=== PATIENT | female | born 1955 | race Caucasian/White ===

== ENCOUNTER 2018-05-10 10:40 | Day surgery (SDC) | payer MEDICARE ==
[2018-05-10] MEDS ORDERED: DIPRIVAN 200 MG/20 ML IV ONE (10:41)
[2018-05-10] MEDS ORDERED: Marcaine 0.5% SDV 10 ML IJ ONE (10:41)
[2018-05-10] MEDS ORDERED: Depo-Medrol 40 MG/ML IM ONE (10:41)
--- NOTE | 2018-05-10 13:53 | XRAY ---
14 seconds fluoroscopy time in surgery for right shoulder joint and biceps tendon injections.
[2018-05-10] MEDS ORDERED: Lactated Ringers 1,000 ML IV ONE (14:31)
--- NOTE | 2018-05-15 09:49 | XRAY ---
Indication: Right shoulder injection. Intraoperative fluoroscopy was provided for 14 seconds. 2 digital spot images submitted for interpretation demonstrates spinal needle tip projecting over the superior right humeral head. Small amount of contrast injected for needle tip placement. Correlate with intraoperative findings/report.
== END 2018-05-10 12:55 | disposition home or self-care (01) ==
LOC: SDC-PAIN 10:40
PROVIDERS: ATTEND Psychiatry & Neurology Pain Medicine
DX: M25.511 Pain in right shoulder (principal)
CPT/HCPCS: 20610; 73030; 76000; 77002; J1030; J2704; Q9967

== ENCOUNTER 2019-08-22 11:28 | Day surgery (SDC) | payer MEDICARE ==
[2019-08-22] MEDS ORDERED: Marcaine 0.5% SDV 10 ML IJ ONE (11:29)
[2019-08-22] MEDS ORDERED: Depo-Medrol 40 MG/ML IM ONE (11:29)
[2019-08-22] MEDS ORDERED: DIPRIVAN 200 MG/20 ML IV ONE (13:00)
[2019-08-22] MEDS ORDERED: Ketamine HCl 50 MG/ML ONE (13:00)
--- NOTE | 2019-08-22 13:39 | XRAY ---
Indication: Right knee injection. Intraoperative fluoroscopy was provided for 9 seconds. Single digital spot image submitted for interpretation demonstrates needle tip projecting over the right femur intercondylar notch. Small amount of contrast injected for needle tip placement. Correlate with intraoperative findings/report.
[2019-08-22] MEDS ORDERED: Lactated Ringers 1,000 ML IV ONE (13:50)
--- NOTE | 2019-08-22 14:07 | XRAY ---
9 seconds fluoroscopy time in surgery for right knee intra-articular injection.
== END 2019-08-22 13:25 | disposition home or self-care (01) ==
LOC: SDC-PAIN 11:28
PROVIDERS: ATTEND Psychiatry & Neurology Pain Medicine
DX: M17.11 Unilateral primary osteoarthritis, right knee (principal); I10 Essential (primary) hypertension; K21.9 Gastro-esophageal reflux disease without esophagitis; Z79.899 Other long term (current) drug therapy
CPT/HCPCS: 20610; 73560; 77002; J1030; J2704; Q9966

== ENCOUNTER 2020-05-02 16:32 | Emergency (ER) | payer MEDICARE ==
--- NOTE | 2020-05-02 16:50 | ERPHSYRPT ---
- History of Present Illness Time Seen by Provider: 05/02/20 16:45 Source: patient Exam Limitations: no limitations Patient Subjective Stated Complaint: PT states "About a week ago or so I have been having numbness and tingling on my right chest and up my neck into my face ." Triage Nursing Assessment: Pt presented alert and oriented X 3, skin pwd Pt ambulates with an upright steady gait, able to speak in clear full sentences pt able to move all extremeties with equal strength. PT in no apparent respiratory distress. Physician History: This is a 65-year-old female who has history of migraine headaches and hyperten kaelyn but no diagnosed coronary artery disease and presents with approximate 1 week history of intermittent left upper chest numbness that radiates into her left side of her neck. At times the numbness then radiates across her scalp to the right side. She states that she is not calling her symptoms chest pain but more of a numbness. She has had no visual changes. She is not short of breath. She has had no fevers. She contacted her primary care physician and they could not see her today and told her to come to the emergency department for further evaluation. Timing/Duration: week(s) (1 week) Severity: mild Associated Symptoms: denies symptoms Allergies/Adverse Reactions: ciprofloxacin [From Cipro] Allergy (Severe, Verified 06/11/16 06:09) Hives morphine Adverse Reaction (Severe, Verified 05/02/20 16:50) passes out tramadol [From Ultram] Adverse Reaction (Intermediate, Verified 06/11/16 06:09) Diarrhea Home Medications: Aspirin [Aspir-Low] 81 mg PO DAILY 06/08/16 [History] Dicyclomine HCl 20 mg [Bentyl 20 mg] 20 mg PO TID 06/08/16 [History] Estradiol 1 mg [Estrace 1 mg] 2 mg PO DAILY 06/08/16 [History] Gabapentin 800 mg PO QID 06/08/16 [History] Lisinopril 20 mg [Zestril 20 MG] 10 mg PO DAILY 06/08/16 [History] Nortriptyline HCl 75 mg PO DAILY 06/08/16 [History] Omeprazole 20 MG [Prilosec 20 mg] 20 mg PO DAILY 06/08/16 [History] Oxycodone HCl/Acetaminophen [Percocet 10-325 mg Tablet] 1 each PO Q6HPRN PRN 06/08/16 [History] Metoprolol Succinate 50 mg [Toprol Xl 50 MG] 50 mg PO DAILY 05/02/20 [History] Hx Tetanus, Diphtheria Vaccination/Date Given: No Hx Influenza Vaccination/Date Given: Yes Hx Pneumococcal Vaccination/Date Given: No Immunizations Up to Date: Yes Travel Risk - International Travel Have you traveled outside of the country in past 3 weeks: No - Coronavirus Screening Are you exhibiting any of the following symptoms?: No Close contact with a COVID-19 positive Pt in past 14-21 Days: No - Review of Systems Constitutional: No Symptoms Eyes: No Symptoms Ears, Nose, & Throat: No Symptoms Respiratory: No Symptoms Cardiac: No Symptoms Abdominal/Gastrointestinal: No Symptoms Genitourinary Symptoms: No Symptoms Musculoskeletal: No Symptoms Skin: No Symptoms Neurological: Parasthesia Psychological: No Symptoms Endocrine: No Symptoms Hematologic/Lymphatic: No Symptoms Immunological/Allergic: No Symptoms All Other Systems: Reviewed and Negative - Past Medical History Pertinent Past Medical History: Yes Neurological History: Peripheral Neuropathy ENT History: No Pertinent History Cardiac History: Hypertension Respiratory History: No Pertinent History Endocrine Medical History: No Pertinent History Musculoskeletal History: Arthritis GI Medical History: No Pertinent History History: No Pertinent History Psycho-Social History: No Pertinent History Female Reproductive Disorders: No Pertinent History Other Medical History: Heart cath, Pt has a neurostimulator in the back for past back problems - Past Surgical History Past Surgical History: Yes Neuro Surgical History: Other Cardiac: Cardiac Catheterization Respiratory: No Pertinent History Gastrointestinal: Appendectomy, Cholecystectomy Genitourinary: No Pertinent History Musculoskeletal: Other Female Surgical History: Hysterectomy Other Surgical History: pt has a neuro stimulator, bilateral carpal tunnel.,torn/repair right shoulder cuff,states total of five back surgeries(cervical fusion 30 yr ago,lumbar fusion,laminectomy) - Social History Smoking Status: Never smoker Exposure to second hand smoke: Yes Drug Use: none Patient Lives Alone: Yes Significant Family History: no pertinent family hx - Female History Hx Now: No - Nursing Vital Signs Nursing Vital Signs: Initial Vital Signs Temperature 98.5 F 05/02/20 16:42 Pulse Rate 96 H 05/02/20 16:42 Respiratory Rate 20 05/02/20 16:42 Blood Pressure 124/69 01/15/21 16:42 O2 Sat by Pulse Oximetry 99 05/02/20 16:42 Pain Scale Pain Intensity 0 - Physical Exam General Appearance: no apparent distress, alert, anxiety Eye Exam: PERRL/EOMI, eyes nml inspection Ears, Nose, Throat Exam: normal ENT inspection, moist mucous membranes Neck Exam: normal inspection, non-tender, supple, full range of motion Respiratory Exam: normal breath sounds, lungs clear, airway intact, No chest tenderness, No respiratory distress Cardiovascular Exam: regular rate/rhythm, normal heart sounds, normal peripheral pulses Gastrointestinal/Abdomen Exam: soft, normal bowel sounds, No tenderness Pelvic Exam: not done Rectal Exam: not done Back Exam: normal inspection, normal range of motion, No CVA tenderness, No vertebral tenderness Extremity Exam: normal inspection, normal range of motion, pelvis stable Neurologic Exam: alert, oriented x 3, cooperative, oracle fusion developer II-XII nml as tested, no rmal mood/affect, nml cerebellar function, nml station & gait, sensation nml, No facial droop, No slurred speech Skin Exam: normal color, warm, dry Lymphatic Exam: No adenopathy SpO2 Interpretation: normal SpO2: 99 O2 Delivery: Room Air - Course Nursing assessment & vital signs reviewed: Yes EKG Interpreted by Me: RATE (89), Sinus Rhythm, NORMAL AXIS, NORMAL INTERVALS, NORMAL QRS, NORMAL ST-T, Other (No acute ischemic changes. No comparison EKG available.) Ordered Tests: Active Orders 24 hr Category Date Time Status [employer] STAT Care 05/02/20 17:17 Active EKG-ER Only STAT Care 05/02/20 17:16 Active IV Insertion STAT Care 05/02/20 17:16 Active NPO (ED) STAT Care 05/02/20 17:16 Active Pulse Oximetry (ED) STAT Care 05/02/20 17:16 Active CHEST 1 VIEW (PORTABLE) Stat Exams 05/02/20 17:17 Completed HEAD WITHOUT CONTRAST [CT] Stat Exams 05/02/20 17:17 Completed CBC W DIFF Stat Lab 05/02/20 18:00 Completed CMP Stat Lab 05/02/20 18:00 Completed MAGNESIUM Stat Lab 05/02/20 18:00 Received PROTIME WITH INR Stat Lab 05/02/20 18:00 Completed T4 (Thyroxine) Stat Lab 05/02/20 18:00 Received TROPONIN Q3H Lab 05/02/20 18:00 Completed TROPONIN Q3H Lab 05/02/20 20:30 Ordered TROPONIN Q3H Lab 05/02/20 23:30 Ordered TROPONIN Q3H Lab 05/03/20 02:30 Ordered TROPONIN Q3H Lab 05/03/20 05:30 Ordered TSH [TSH, 3RD Generation] Stat Lab 05/02/20 18:00 Received Lab/Rad Data: Laboratory Result Diagrams 05/02/20 18:00 05/02/20 18:00 Laboratory Results 05/02/20 05/02/20 05/02/20 Range/Units 18:00 18:00 18:00 WBC (4.0-10.5) K/mm3 RBC (4.1-5.4) M/mm3 Hgb (12.0-16.0) gm/dl Hct (35-47) % MCV (78-100) fl MCH (26-32) pg MCHC (32-36) g/dl RDW (11.5-14.0) % Plt Count (150-450) K/mm3 MPV (7.5-11.0) fl Gran % (36.0-66.0) % Eos # (Auto) (0-0.5) Absolute Lymphs (auto) (1.0-4.6) Absolute Monos (auto) (0.0-1.3) Lymphocytes % (24.0-44.0) % Monocytes % (0.0-12.0) % Eosinophils % (0.00-5.0) % Basophils % (0.0-0.4) % Absolute Granulocytes (1.4-6.9) Basophils # (0-0.4) PT 13.1 H (9.95-12.35) SECONDS INR 1.16 (0.8-3.0) Sodium 136 L (137-145) mmol/L Potassium 4.6 (3.5-5.1) mmol/L Chloride 105 (98-107) mmol/L Carbon Dioxide 24 (22-30) mmol/L Anion Gap 11.7 (5-15) MEQ/L BUN 27 H (7-17) mg/dL Creatinine 1.36 H (0.52-1.04) mg/dL Estimated GFR 41.3 ML/MIN Glucose 93 (74-106) mg/dL Calcium 9.7 (8.4-10.2) mg/dL Total Bilirubin 0.20 (0.2-1.3) mg/dL AST 22 (14-36) U/L ALT 15 (0-35) U/L Alkaline Phosphatase 60 (38-126) U/L Troponin I < 0.012 (0.000-0.034) ng/mL Serum Total Protein 7.0 (6.3-8.2) g/dL Albumin 3.8 (3.5-5.0) g/dL 05/02/20 Range/Units 18:00 WBC 12.6 H (4.0-10.5) K/mm3 RBC 4.09 L (4.1-5.4) M/mm3 Hgb 11.9 L (12.0-16.0) gm/dl Hct 38.1 (35-47) % MCV 93.2 (78-100) fl MCH 29.1 (26-32) pg MCHC 31.2 L (32-36) g/dl RDW 15.9 H (11.5-14.0) % Plt Count 287 (150-450) K/mm3 MPV 10.6 (7.5-11.0) fl Gran % 53.0 (36.0-66.0) % Eos # (Auto) 0.27 (0-0.5) Absolute Lymphs (auto) 4.37 (1.0-4.6) Absolute Monos (auto) 1.22 (0.0-1.3) Lymphocytes % 34.7 (24.0-44.0) % Monocytes % 9.7 (0.0-12.0) % Eosinophils % 2.1 (0.00-5.0) % Basophils % 0.5 (0.0-0.4) % Absolute Granulocytes 6.67 (1.4-6.9) Basophils # 0.06 (0-0.4) PT (9.95-12.35) SECONDS INR (0.8-3.0) Sodium (137-145) mmol/L Potassium (3.5-5.1) mmol/L Chloride (98-107) mmol/L Carbon Dioxide (22-30) mmol/L Anion Gap (5-15) MEQ/L BUN (7-17) mg/dL Creatinine (0.52-1.04) mg/dL Estimated GFR ML/MIN Glucose (74-106) mg/dL Calcium (8.4-10.2) mg/dL Total Bilirubin (0.2-1.3) mg/dL AST (14-36) U/L ALT (0-35) U/L Alkaline Phosphatase (38-126) U/L Troponin I (0.000-0.034) ng/mL Serum Total Protein (6.3-8.2) g/dL Albumin (3.5-5.0) g/dL - Progress Progress: unchanged, re-examined Progress Note: 05/02/20 18:30 CAT scan of the head without contrast reveals no acute intracranial abnormality Chest x-ray shows no acute cardiopulmonary process 05/02/20 18:54 I reviewed the patient's white blood cell counts that were performed in the past. Patient has chronic leukocytosis. Counseled pt/family regarding: lab results, diagnosis, need for follow-up, rad results - Departure Departure Disposition: Home Clinical Impression: Numbness, Leukocytosis, unspecified Condition: Stable Critical Care Time: No Referrals: DEE BEAR [Primary Care Provider] - Additional Instructions: drink plenty of fluids. Follow-up with your primary care physician for further management of your symptoms.
[2020-05-02 18:12] VITALS: BP 122/79; PULSE 85
--- NOTE | 2020-05-02 18:13 | XRAY ---
Indication: Left head numbness radiating left face and left shoulder 2 weeks. Multiple contiguous axial images obtained through the head without contrast. Comparison: November 25, 2015. Normal appearing brain parenchyma, ventricles, and bony calvarium. Visualized paranasal sinuses and mastoid air cells are clear. Impression: Continued normal CT head without contrast exam.
[2020-05-02 18:21] LABS: Absolute Neutrophil Ct (ANC) 6.67 (1.4-6.9); BASOPHIL % 0.5 % (0.0-0.4); Basophil (Absolute #) 0.06 (0-0.4); Eosinophil % 2.1 % (0.00-5.0); Eosinophil (Absolute #) 0.27 (0-0.5); Hematocrit 38.1 % (35-47); Hemoglobin 11.9 gm/dl (12.0-16.0); Lymphocyte (Absolute #) 4.37 (1.0-4.6); Lymphocytes % 34.7 % (24.0-44.0); Mean Cell Volume 93.2 fl (78-100); Mean Corpuscular Hemoglobin 29.1 pg (26-32); Mean Corpuscular Hgb Concent. 31.2 g/dl (32-36); Mean Platelet Volume 10.6 fl (7.5-11.0); Monocyte (Absolute #) 1.22 (0.0-1.3); Monocytes % 9.7 % (0.0-12.0); Platelet Count 287 K/mm3 (150-450); Red Blood Count 4.09 M/mm3 (4.1-5.4); Red Cell Distribution Width 15.9 % (11.5-14.0); White Blood Count 12.6 K/mm3 (4.0-10.5)
[2020-05-02 18:22] LABS: INR 1.16 (0.8-3.0); PROTIME 13.1 SECONDS (9.95-12.35)
--- NOTE | 2020-05-02 18:23 | XRAY ---
Indication: Left-sided pain and numbness 2 weeks. Comparison: April 08, 2008. Portable chest demonstrates normal heart and lungs. Bony thorax intact with interval right shoulder arthroplasty and intact bipolar prosthesis.
[2020-05-02 18:29] LABS: ALBUMIN 3.8 g/dL (3.5-5.0); ANION GAP 11.7 MEQ/L (5-15); BILIRUBIN,TOTAL 0.2 mg/dL (0.2-1.3); Calcium 9.7 mg/dL (8.4-10.2); Creatinine 1 1.36 mg/dL (0.52-1.04); EST GLOMERULAR FILTRATION RATE 41.3 ML/MIN; Potassium 4.6 mmol/L (3.5-5.1)
[2020-05-02 18:31] VITALS: O2SAT 99
[2020-05-02 19:22] LABS: MAGNESIUM 1.9 mg/dL (1.6-2.3); T4 (Thyroxine) 6.58 ug/dL (5.53-10.96); TSH, 3RD Generation 4.69 mIU/L (0.47-4.68)
== END 2020-05-02 19:01 | disposition home or self-care (01) ==
LOC: ED 16:32
DX: R20.0 Anesthesia of skin (principal); D72.829 Elevated white blood cell count, unspecified; I10 Essential (primary) hypertension; R07.89 Other chest pain; Z79.899 Other long term (current) drug therapy; Z79.891 Long term (current) use of opiate analgesic
CPT/HCPCS: 36000; 36415; 70450; 71045; 80053; 83735; 84436; 84443; 84484; 85025; 85610; 93005; 93041; 94760; 99284

== ENCOUNTER 2020-09-10 10:21 | Day surgery (SDC) | payer MEDICARE ==
[2020-09-10] MEDS ORDERED: LIDOCAINE HCL 2% 100 MG/5 ML IJ ONE (10:22)
[2020-09-10] MEDS ORDERED: Decadron 4 MG INJ IV ONE (10:22)
[2020-09-10] MEDS ORDERED: DIPRIVAN 200 MG/20 ML IV ONE (11:15)
--- NOTE | 2020-09-10 12:13 | XRAY ---
Indication: Left C2-C4 MBB. Intraoperative fluoroscopy provided for 1 minute 7 seconds. 5 digital spot images submitted for interpretation demonstrates posterior needle tips projecting over the expected left C2-C4 nerve roots. Correlate with intraoperative findings/report.
--- NOTE | 2020-09-10 12:33 | XRAY ---
1 minute and 7 seconds fluoroscopy time in surgery for left C2-C4 MBB.
[2020-09-10] MEDS ORDERED: Lactated Ringers 1,000 ML IV ONE (16:18)
== END 2020-09-10 11:53 | disposition home or self-care (01) ==
LOC: SDC-PAIN 10:21
PROVIDERS: ATTEND Psychiatry & Neurology Pain Medicine
DX: M47.812 Spondylosis without myelopathy or radiculopathy, cervical region (principal); I10 Essential (primary) hypertension; K21.9 Gastro-esophageal reflux disease without esophagitis; M19.90 Unspecified osteoarthritis, unspecified site; Z79.899 Other long term (current) drug therapy
CPT/HCPCS: 64490; 64491; 72040; 77002; J1100; J2704

== ENCOUNTER 2021-03-04 10:42 | Day surgery (SDC) | payer MEDICARE ==
[2021-03-04] MEDS ORDERED: Depo-Medrol 40 MG/ML IM ONE (10:43)
[2021-03-04] MEDS ORDERED: Sodium Chloride 0.9% 10 ML FLUSH Syringe IJ ONE (10:43)
[2021-03-04] MEDS ORDERED: DIPRIVAN 200 MG/20 ML IV ONE ×2 (11:07→11:23)
[2021-03-04] MEDS ORDERED: Lactated Ringers 1,000 ML IV ONE (12:05)
--- NOTE | 2021-03-04 14:15 | XRAY ---
Indication: Lumbar ILSA. Intraoperative fluoroscopy provided for 17 seconds. 2 digital spot image submitted for interpretation demonstrates posterior midline needle tip projecting just posterior to lumbosacral junction interspace. Small amount of contrast injected for needle tip placement. Correlate with intraoperative findings/report.
--- NOTE | 2021-03-04 15:17 | XRAY ---
17 seconds fluoroscopy time in surgery for lumbar ILSA.
== END 2021-03-04 12:18 | disposition home or self-care (01) ==
LOC: SDC-PAIN 10:42
PROVIDERS: ATTEND Psychiatry & Neurology Pain Medicine
DX: M54.16 Radiculopathy, lumbar region (principal); Z79.891 Long term (current) use of opiate analgesic
CPT/HCPCS: 62323; 72100; 77003; J1030; J2704; Q9966

== ENCOUNTER 2021-03-16 12:09 | Inpatient (IN) | payer MEDICARE ==
[2021-03-16] MEDS ORDERED: Sodium Chloride 0.9% 1000 ML 1,000 ML IV STA (12:11)
[2021-03-16] MEDS ORDERED: Zofran 4 MG/2 ML VIAL IV ONE ×2 (12:13→17:20)
--- NOTE | 2021-03-16 12:32 | ERPHSYRPT ---
- History of Present Illness Historian: patient Patient Subjective Stated Complaint: pt here for n/v. since last night, no fever. Triage Nursing Assessment: pt alert, resp easy, skin w/d/p. face mask placed on pt. co and pain across abd , abd soft Physician History: 65yo wf w nausea/vomiting beginning at 20:00 last night w abdominal pain starting at 8:00AM. She has diffuse abdominal cramping rated a 8. Pt denies diarrhea/melena/hematochezia/hematemesis/dysuria/hematuria/chest pain/cough- coryza/fever. She is fully vaccinated w Moderna vaccine. Timing/Duration: other (20:00) Activities at Onset: rest Quality: cramping Abdominal Pain Onset Location: generalized abdomen Pain Radiation: no radiation Severity of Pain-Max: severe Severity of Pain-Current: severe Modifying Factors: Improves With: vomiting (Worse w vomiting) Associated Symptoms: loss of appetite, nausea, vomiting, weakness, No back, No chest pain, No diaphoresis, No diarrhea, No fever/chills, No fatigue, No headache, No heartburn, No neck pain, No rash, No shortness of breath, No syncope Previous symptoms: no prior history Allergies/Adverse Reactions: ciprofloxacin [From Cipro] Allergy (Severe, Verified 03/16/21 12:15) Hives morphine Adverse Reaction (Severe, Verified 03/16/21 12:15) passes out tramadol [From Ultram] Adverse Reaction (Intermediate, Verified 03/16/21 12:15) Diarrhea Home Medications: Dicyclomine HCl 20 mg [Bentyl 20 mg] 20 mg PO TID 06/08/16 [History] Gabapentin 800 mg PO Q6H 06/08/16 [History] Omeprazole 20 MG [Prilosec 20 mg] 20 mg PO DAILY 06/08/16 [History] Clopidogrel Bisulfate 75 mg [PLAVIX 75 MG Tablet] 75 mg PO DAILY 03/16/21 [History] Diphenhydramine HCl [Benadryl Allergy] 50 mg PO HS 03/16/21 [History] Estradiol 2 mg PO DAILY 03/16/21 [History] Hydrocodone/Acetaminophen [Hydrocodone-Acetamin 10-325 mg] 1 ea PO Q6H 03/16/21 [History] Lisinopril 10 mg [Zestril 10 MG] 10 mg PO DAILY 03/16/21 [History] Nortriptyline HCl 75 mg PO HS 03/16/21 [History] Topiramate 50 mg PO BID 03/16/21 [History] Hx Tetanus, Diphtheria Vaccination/Date Given: No Hx Influenza Vaccination/Date Given: No Hx Pneumococcal Vaccination/Date Given: No Travel Risk - International Travel Have you traveled outside of the country in past 3 weeks: No - Coronavirus Screening Are you exhibiting any of the following symptoms?: Yes Symptoms: Vomiting/Diarrhea Close contact with a COVID-19 positive Pt in past 14-21 Days: No - Vaccine Status Have you recieved a Covid-19 vaccination: Yes Public [employer]: [employer] - Vaccination Dates Date of 2cond Vaccination (if applicable): ? - Review of Systems Constitutional: No Symptoms, Weakness Eyes: No Symptoms Ears, Nose, & Throat: No Symptoms Respiratory: No Symptoms Cardiac: No Symptoms Abdominal/Gastrointestinal: Nausea, Vomiting, Appetite Changes, No Diarrhea, No Constipation, No Hematemesis, No Hematochezia, No Melena, No Dysphagia Genitourinary Symptoms: No Symptoms Musculoskeletal: No Symptoms Skin: No Symptoms Neurological: No Symptoms Psychological: No Symptoms Endocrine: No Symptoms Hematologic/Lymphatic: No Symptoms Immunological/Allergic: No Symptoms - Past Medical History Pertinent Past Medical History: Yes Neurological History: Peripheral Neuropathy ENT History: No Pertinent History Cardiac History: Hypertension Respiratory History: No Pertinent History Endocrine Medical History: No Pertinent History Musculoskeletal History: Arthritis GI Medical History: No Pertinent History History: No Pertinent History Psycho-Social History: No Pertinent History Female Reproductive Disorders: No Pertinent History Other Medical History: Heart cath, Pt has a neurostimulator in the back for past back problems - Past Surgical History Past Surgical History: Yes Neuro Surgical History: Other Cardiac: Cardiac Catheterization Respiratory: No Pertinent History Gastrointestinal: Appendectomy, Cholecystectomy Genitourinary: No Pertinent History Musculoskeletal: Other Female Surgical History: Hysterectomy Other Surgical History: pt has a neuro stimulator, bilateral carpal tunnel.,torn/repair right shoulder cuff,states total of five back surgeries(ce rvical fusion 30 yr ago,lumbar fusion,laminectomy) - Social History Smoking Status: Never smoker Exposure to second hand smoke: No Drug Use: none Patient Lives Alone: Yes Significant Family History: no pertinent family hx - Female History Hx Last Menstrual Period: post Hx Now: No - Nursing Vital Signs Nursing Vital Signs: Initial Vital Signs Temperature 97.0 F 03/16/21 12:13 Pulse Rate 87 03/16/21 12:13 Respiratory Rate 18 03/16/21 12:13 Blood Pressure 160/101 03/16/21 12:13 O2 Sat by Pulse Oximetry 98 03/16/21 12:13 Pain Scale Pain Intensity 4 Hypertensive - Physical Exam General Appearance: no apparent distress Eye Exam: PERRL/EOMI, eyes nml inspection Ears, Nose, Throat Exam: normal ENT inspection, TMs normal, pharynx normal, moist mucous membranes Neck Exam: normal inspection, non-tender, supple, full range of motion, No meningismus, No mass, No Brudzinski, No Kernig's, No carotid bruit Respiratory Exam: normal breath sounds, lungs clear, airway intact, No respiratory distress Cardiovascular Exam: regular rate/rhythm, No murmur Gastrointestinal/Abdomen Exam: soft, tenderness (TTP LLQ w guarding), other (Hypoactive BS), No normal bowel sounds Back Exam: normal inspection, normal range of motion, No CVA tenderness, No vertebral tenderness Extremity Exam: normal inspection, normal range of motion Neurologic Exam: alert, oriented x 3, cooperative, clinical cytogeneticist scientist II-XII nml as tested, normal mood/affect, nml cerebellar function, sensation nml, No motor deficits, No sensory deficit Skin Exam: normal color, warm, dry, No rash Lymphatic Exam: No adenopathy SpO2 Interpretation: normal SpO2: 98 O2 Delivery: Room Air - Course Nursing assessment & vital signs reviewed: Yes EKG Interpreted by Me: RATE (NSR/R88/Normal QT, QTc/Low voltage/No acute ST- Twave changes) - CT Exams Abdomen/Pelvis CT Interpretation: Discussed w/radiologist (Stable gastric bypass surgery/Nothing acute) Ordered Tests: Active Orders 24 hr Category Date Time Status NPO Diet 03/16/21 17:21 Active ABDOMEN AND PELVIS W CONTRAST [CT] Stat Exams 03/16/21 14:19 Completed AMYLASE Stat Lab 03/16/21 12:37 Completed CBC W DIFF AM.LAB Lab 03/17/21 04:00 Ordered CBC W DIFF Stat Lab 03/16/21 12:37 Completed CMP AM.LAB Lab 03/17/21 04:00 Ordered CMP Stat Lab 03/16/21 12:37 Completed LIPASE Stat Lab 03/16/21 12:37 Completed TROPONIN Q3H Lab 03/16/21 12:37 Completed TROPONIN Q3H Lab 03/16/21 15:35 Completed TROPONIN Q3H Lab 03/16/21 18:37 Received TROPONIN Q3H Lab 03/16/21 21:15 Ordered TROPONIN Q3H Lab 03/17/21 00:15 Ordered UA W/RFX UR CULTURE Stat Lab 03/16/21 13:42 Completed Transfer Order Routine Transfer 03/16/21 Completed Medication Summary Generic Name Dose Route Start Last Admin Trade Name Elma PRN Reason Stop Dose Admin Hydromorphone HCl 0.5 mg 03/16/21 17:20 03/16/21 18:16 Hydromorphone 1 Mg/1ml Inj 1 Mg/Ml Syringe IV 03/21/21 17:19 0.5 mg Q4H PRN PRN Administration PAIN Sodium Chloride 1,000 mls @ 100 mls/hr 03/16/21 17:30 03/16/21 18:19 Sodium Chloride 0.9% 1000 Ml IV 04/15/21 17:29 Not Given .Q10H QUINN Ondansetron HCl 4 mg 03/16/21 17:20 Ondansetron Hcl 4 Mg/2 Ml Vial IV 04/15/21 17:19 Q6H PRN PRN NAUSEA/VOMITING Pantoprazole Sodium 40 mg 03/17/21 10:00 Pantoprazole 40 Mg Vial IV 04/16/21 09:59 Q24H10 QUINN Discontinued Medications Generic Name Dose Route Start Last Admin Trade Name Elma PRN Reason Stop Dose Admin Fentanyl Citrate 25 mcg 03/16/21 13:07 03/16/21 14:33 Fentanyl Citrate 100 Mcg/2 Ml* Vial IV 03/16/21 13:08 25 mcg STAT ONE Administration Fentanyl Citrate Confirm 03/16/21 14:27 Fentanyl Citrate 100 Mcg/2 Ml* Vial Administered 03/16/21 14:28 Dose 100 mcg .ROUTE .STK-MED ONE Fentanyl Citrate 50 mcg 03/16/21 17:19 03/16/21 17:22 Fentanyl Citrate 100 Mcg/2 Ml* Vial IV 03/16/21 17:20 50 mcg STAT ONE Administration Fentanyl Citrate Confirm 03/16/21 17:20 Fentanyl Citrate 100 Mcg/2 Ml* Vial Administered 03/16/21 17:21 Dose 100 mcg .ROUTE .STK-MED ONE Sodium Chloride 1,000 mls @ 999 mls/hr 03/16/21 12:11 03/16/21 15:46 Sodium Chloride 0.9% 1000 Ml IV 03/16/21 13:11 Infused .Q1H1M STA Infusion Sodium Chloride Confirm 03/16/21 14:28 Sodium Chloride 0.9% 1000 Ml Administered 03/16/21 14:29 Dose 1,000 mls @ ud .ROUTE .STK-MED ONE Lidocaine HCl Confirm 03/16/21 17:02 Lidocaine - Mpf 2% 5 Ml Vial Administered 03/16/21 17:03 Dose 5 ml .ROUTE .STK-MED ONE Ondansetron HCl 4 mg 03/16/21 12:13 03/16/21 14:34 Ondansetron Hcl 4 Mg/2 Ml Vial IV 03/16/21 12:14 4 mg STAT ONE Administration Ondansetron HCl 4 mg 03/16/21 13:24 03/16/21 13:38 Zofran 4 Mg/Udtablet Orally Disintegrating PO 03/16/21 13:25 4 mg STAT ONE Administration Ondansetron HCl Confirm 03/16/21 13:26 Zofran 4 Mg/Udtablet Orally Disintegrating Administered 03/16/21 13:27 Dose 4 mg .ROUTE .STK-MED ONE Ondansetron HCl Confirm 03/16/21 14:27 Ondansetron Hcl 4 Mg/2 Ml Vial Administered 03/16/21 14:28 Dose 4 mg .ROUTE .STK-MED ONE Ondansetron HCl 4 mg 03/16/21 17:20 03/16/21 17:22 Ondansetron Hcl 4 Mg/2 Ml Vial IV 03/16/21 17:21 4 mg STAT ONE Administration Ondansetron HCl Confirm 03/16/21 17:20 Ondansetron Hcl 4 Mg/2 Ml Vial Administered 03/16/21 17:21 Dose 4 mg .ROUTE .STK-MED ONE Lab/Rad Data: Laboratory Result Diagrams 03/16/21 12:37 03/16/21 12:37 Laboratory Results 03/16/21 03/16/21 03/16/21 Range/Units 16:02 15:35 13:42 WBC (4.0-10.5) K/mm3 RBC (4.1-5.4) M/mm3 Hgb (12.0-16.0) gm/dl Hct (35-47) % MCV (78-100) fl MCH (26-32) pg MCHC (32-36) g/dl RDW (11.5-14.0) % Plt Count (150-450) K/mm3 MPV (7.5-11.0) fl Gran % (36.0-66.0) % Eos # (Auto) (0-0.5) Absolute Lymphs (auto) (1.0-4.6) Absolute Monos (auto) (0.0-1.3) Lymphocytes % (24.0-44.0) % Monocytes % (0.0-12.0) % Eosinophils % (0.00-5.0) % Basophils % (0.0-0.4) % Absolute Granulocytes (1.4-6.9) Basophils # (0-0.4) Sodium (137-145) mmol/L Potassium (3.5-5.1) mmol/L Chloride (98-107) mmol/L Carbon Dioxide (22-30) mmol/L Anion Gap (5-15) MEQ/L BUN (7-17) mg/dL Creatinine (0.52-1.04) mg/dL Estimated GFR ML/MIN Glucose (74-106) mg/dL Calcium (8.4-10.2) mg/dL Total Bilirubin (0.2-1.3) mg/dL AST (14-36) U/L ALT (0-35) U/L Alkaline Phosphatase (38-126) U/L Troponin I < 0.012 (0.000-0.034) ng/mL Serum Total Protein (6.3-8.2) g/dL Albumin (3.5-5.0) g/dL Amylase (30-110) U/L Lipase (23-300) U/L Urine Color EDER (YELLOW) Urine Appearance CLOUDY (CLEAR) Urine pH 5.0 (5-6) Ur Specific [place] 1.034 (1.005-1.025) Urine Protein 100 (Negative) Urine Ketones TRACE (NEGATIVE) Urine Blood NEGATIVE (0-5) Prince/ul Urine Nitrite NEGATIVE (NEGATIVE) Urine Bilirubin NEGATIVE (NEGATIVE) Urine Urobilinogen NEGATIVE (0-1) mg/dL Ur Leukocyte Esterase NEGATIVE (NEGATIVE) Urine WBC (Auto) 3-5 (0-5) /HPF Urine RBC (Auto) 0-2 (0-2) /HPF U Epithel Cells (Auto) RARE (FEW) /HPF Urine Bacteria (Auto) FEW (NEGATIVE) /HPF Calcium Oxalate Crystal 26-50 (NEGATIVE) /HPF Urine Mucus (Auto) SLIGHT (NEGATIVE) /HPF Urine Culture Reflexed NO (NO) Urine Glucose NEGATIVE (NEGATIVE) mg/dL Influenza Type A Ag NEGATIVE (NEGATIVE) Influenza Type B Ag NEGATIVE (NEGATIVE) RSV (PCR) NEGATIVE (Negative) SARS-CoV-2 (PCR) NEGATIVE (NEGATIVE) 03/16/21 03/16/21 03/16/21 Range/Units 12:37 12:37 12:37 WBC 20.9 H (4.0-10.5) K/mm3 RBC 4.64 (4.1-5.4) M/mm3 Hgb 14.3 (12.0-16.0) gm/dl Hct 46.9 (35-47) % MCV 101.1 H (78-100) fl MCH 30.8 (26-32) pg MCHC 30.5 L (32-36) g/dl RDW 14.4 H (11.5-14.0) % Plt Count 265 (150-450) K/mm3 MPV 10.4 (7.5-11.0) fl Gran % 86.4 H (36.0-66.0) % Eos # (Auto) 0.02 (0-0.5) Absolute Lymphs (auto) 1.93 (1.0-4.6) Absolute Monos (auto) 0.86 (0.0-1.3) Lymphocytes % 9.2 L (24.0-44.0) % Monocytes % 4.1 (0.0-12.0) % Eosinophils % 0.1 (0.00-5.0) % Basophils % 0.2 (0.0-0.4) % Absolute Granulocytes 18.04 H (1.4-6.9) Basophils # 0.04 (0-0.4) Sodium 136 L (137-145) mmol/L Potassium 4.0 (3.5-5.1) mmol/L Chloride 102 (98-107) mmol/L Carbon Dioxide 22 (22-30) mmol/L Anion Gap 16.3 H (5-15) MEQ/L BUN 18 H (7-17) mg/dL Creatinine 0.75 (0.52-1.04) mg/dL Estimated GFR > 60.0 ML/MIN Glucose 133 H (74-106) mg/dL Calcium 9.4 (8.4-10.2) mg/dL Total Bilirubin 0.30 (0.2-1.3) mg/dL AST 28 (14-36) U/L ALT 24 (0-35) U/L Alkaline Phosphatase 104 (38-126) U/L Troponin I < 0.012 (0.000-0.034) ng/mL Serum Total Protein 8.4 H (6.3-8.2) g/dL Albumin 4.5 (3.5-5.0) g/dL Amylase 82 (30-110) U/L Lipase 107 (23-300) U/L Urine Color (YELLOW) Urine Appearance (CLEAR) Urine pH (5-6) Ur Specific [place] (1.005-1.025) Urine Protein (Negative) Urine Ketones (NEGATIVE) Urine Blood (0-5) [place]/ul Urine Nitrite (NEGATIVE) Urine Bilirubin (NEGATIVE) Urine Urobilinogen (0-1) mg/dL Ur Leukocyte Esterase (NEGATIVE) Urine WBC (Auto) (0-5) /HPF Urine RBC (Auto) (0-2) /HPF U Epithel Cells (Auto) (FEW) /HPF Urine Bacteria (Auto) (NEGATIVE) /HPF Calcium Oxalate Crystal (NEGATIVE) /HPF Urine Mucus (Auto) (NEGATIVE) /HPF Urine Culture Reflexed (NO) Urine Glucose (NEGATIVE) mg/dL Influenza Type A Ag (NEGATIVE) Influenza Type B Ag (NEGATIVE) RSV (PCR) (Negative) SARS-CoV-2 (PCR) (NEGATIVE) - Progress Progress Note: 03/16/21 17:12 25umg IV Fentanyl/4mg IV Zofran 03/16/21 17:12 1L NS Bolus 4mg Zofran ODT 03/16/21 17:[address] Edwards 03/16/21 19:37 NG tube placed per nursing/No comps/Pt tolerated procedure well Discussed with : Kevin Will see patient in: hospital (observation) Counseled pt/family regarding: lab results, diagnosis, rad results - Departure Departure Disposition: Observation Clinical Impression: Small bowel obstruction Condition: Stable Critical Care Time: No
[2021-03-16 12:54] LABS: Absolute Neutrophil Ct (ANC) 18.04 (1.4-6.9); BASOPHIL % 0.2 % (0.0-0.4); Basophil (Absolute #) 0.04 (0-0.4); Eosinophil % 0.1 % (0.00-5.0); Eosinophil (Absolute #) 0.02 (0-0.5); Hematocrit 46.9 % (35-47); Hemoglobin 14.3 gm/dl (12.0-16.0); Lymphocyte (Absolute #) 1.93 (1.0-4.6); Lymphocytes % 9.2 % (24.0-44.0); Mean Cell Volume 101.1 fl (78-100); Mean Corpuscular Hemoglobin 30.8 pg (26-32); Mean Corpuscular Hgb Concent. 30.5 g/dl (32-36); Mean Platelet Volume 10.4 fl (7.5-11.0); Monocyte (Absolute #) 0.86 (0.0-1.3); Monocytes % 4.1 % (0.0-12.0); Neutrophil % 86.4 % (36.0-66.0); Platelet Count 265 K/mm3 (150-450); Red Blood Count 4.64 M/mm3 (4.1-5.4); Red Cell Distribution Width 14.4 % (11.5-14.0); White Blood Count 20.9 K/mm3 (4.0-10.5)
[2021-03-16 13:01] LABS: ALBUMIN 4.5 g/dL (3.5-5.0); ALKALINE PHOSPHATASE 104 U/L (38-126); AMYLASE 82 U/L (30-110); ANION GAP 16.3 MEQ/L (5-15); BLOOD UREA NITROGEN 18 mg/dL (7-17); CHLORIDE 102 mmol/L (98-107); Calcium 9.4 mg/dL (8.4-10.2); Carbon Dioxide 22 mmol/L (22-30); Creatinine 1 0.75 mg/dL (0.52-1.04); EST GLOMERULAR FILTRATION RATE > 60.0 ML/MIN; Glucose 133 mg/dL (74-106); LIPASE 107 U/L (23-300); SGOT/AST 28 U/L (14-36); SGPT/ALT 24 U/L (0-35); SODIUM 136 mmol/L (137-145); Total Protein 8.4 g/dL (6.3-8.2)
[2021-03-16] MEDS ORDERED: SUBLIMAZE 100 MCG/2 ML IV ONE ×2 (13:07→17:19)
[2021-03-16] MEDS ORDERED: ZOFRAN ODT 4 MG PO ONE (13:24)
[2021-03-16] MEDS ORDERED: ZOFRAN ODT 4 MG ONE (13:26)
[2021-03-16 14:18] LABS: Appearance CLOUDY (CLEAR); Bacteria FEW /HPF (NEGATIVE); Bilirubin NEGATIVE (NEGATIVE); Blood NEGATIVE Ery/ul (0-5); Epithelial Cells RARE /HPF (FEW); Glucose NEGATIVE (NEGATIVE); Ketones TRACE (NEGATIVE); Leukocyte Esterase NEGATIVE (NEGATIVE); Mucus SLIGHT /HPF (NEGATIVE); Nitrite NEGATIVE (NEGATIVE); Protein,Urine Dip 100 (Negative); RBC 0-2 /HPF (0-2); Specific Gravity 1.034 (1.005-1.025); Urobilinogen NEGATIVE mg/dL (0-1)
[2021-03-16 14:19] LABS: Calcium Oxalate Crystals 26-50 /HPF (NEGATIVE)
[2021-03-16] MEDS ORDERED: Zofran 4 MG/2 ML VIAL ONE ×2 (14:27→17:20)
[2021-03-16] MEDS ORDERED: SUBLIMAZE 100 MCG/2 ML ONE ×2 (14:27→17:20)
[2021-03-16] MEDS ORDERED: Sodium Chloride 0.9% 1000 ML 1,000 ML ONE (14:28)
--- NOTE | 2021-03-16 15:31 | XRAY ---
Indication: Pain, vomiting, nausea, and leukocytosis. Multiple contiguous axial images obtained through the abdomen and pelvis using 80 cc Isovue 370 contrast. Comparison: January 08, 2021. Again epidural stimulator device and L5-S1 posterior fusion hardware produces beam artifact limiting these levels. Lung bases again demonstrates minimal fibrosis/scarring. No infiltrate or effusion. Heart is not enlarged. Stomach and small bowel loops are now mildly fluid distended throughout. Small bowel distended up to 3.4 cm diameter. Pelvic small bowel loop demonstrates new moderate intraluminal fecal-like matter with distal ileum and colon predominantly decompressed favoring small bowel obstruction. No free fluid/air. Again previous cholecystectomy. Remaining liver, pancreas, spleen, adrenal glands, kidneys, ureters, bladder, and aorta are unremarkable. No pathologic retroperitoneal lymphadenopathy. Remaining visualized osseous structures intact again with minimal/mild degenerative changes throughout the thoracolumbar spine. Impression: 1. Again beam artifact from epidural stimulator device and L5-S1 fusion hardware. 2. New CT findings favoring distal small bowel obstruction as detailed.
[2021-03-16 16:44] LABS: INFLUENZA A NEGATIVE (NEGATIVE); INFLUENZA B NEGATIVE (NEGATIVE); RESPIRATORY SYNCTIAL VIRUS NEGATIVE (Negative); SARS-CoV-2 Xpert Express NEGATIVE (NEGATIVE)
[2021-03-16] MEDS ORDERED: Xylocaine-Mpf 2% 5 Ml Vial ONE (17:02)
[2021-03-16] MEDS ORDERED: Hydromorphone 1 mg/ml Injection IV PRN (17:20)
[2021-03-16] MEDS ORDERED: Zofran 4 MG/2 ML VIAL IV PRN (17:20)
[2021-03-16] MEDS ORDERED: Sodium Chloride 0.9% 1000 ML 1,000 ML IV SCH (17:30)
[2021-03-16] MEDS: Dextrose 5% -0.45 NaCl 1000 ML 1,000 ML IV SCH (20:34)
[2021-03-16] MEDS: Hydromorphone 1 mg/ml Injection IV PRN (20:34)
[2021-03-16] MEDS ORDERED: PROTONIX 40 MG IV IV ONE (21:53)
[2021-03-16] MEDS: PROTONIX 40 MG IV IV SCH (22:29)
[2021-03-17] MEDS: Hydromorphone 1 mg/ml Injection IV PRN ×7 (00:14→21:44)
[2021-03-17] MEDS: Zofran 4 MG/2 ML VIAL IV PRN ×5 (00:14→21:50)
[2021-03-17] MEDS: Dextrose 5% -0.45 NaCl 1000 ML 1,000 ML IV SCH ×3 (06:29→18:44)
[2021-03-17 07:06] LABS: Hematocrit 41.9 % (35-47); Hemoglobin 13.1 gm/dl (12.0-16.0); Mean Corpuscular Hemoglobin 31.6 pg (26-32); Mean Corpuscular Hgb Concent. 31.3 g/dl (32-36); Mean Platelet Volume 10.8 fl (7.5-11.0); Platelet Count 276 K/mm3 (150-450); Red Blood Count 4.15 M/mm3 (4.1-5.4); Red Cell Distribution Width 14.7 % (11.5-14.0)
[2021-03-17 07:13] LABS: White Blood Count 31.1 K/mm3 (4.0-10.5)
[2021-03-17] MEDS ORDERED: PHARMACY DOSING REQUEST MC ONE (07:31)
[2021-03-17 07:32] LABS: ALBUMIN 3.9 g/dL (3.5-5.0); ANION GAP 19.2 MEQ/L (5-15); BILIRUBIN,TOTAL 0.6 mg/dL (0.2-1.3); Calcium 8.4 mg/dL (8.4-10.2); Creatinine 1 1.88 mg/dL (0.52-1.04); EST GLOMERULAR FILTRATION RATE 28.5 ML/MIN; Potassium 4.2 mmol/L (3.5-5.1)
[2021-03-17] MEDS: Zosyn 2.25 GM 2.25 GM in Sodium Chloride 100ML MINI-BAG PLUS 100 ML IV SCH ×4 (07:55→23:16)
--- NOTE | 2021-03-17 08:48 | HP ---
CHIEF COMPLAINT: Nausea and vomiting. HISTORY OF PRESENT ILLNESS: The patient is a 65-year-old white female who presented to the hospital with the above complaints. On evaluation, the patient was found to have what appears to be a small bowel obstruction and was admitted to the hospital for further evaluation and management for surgery. The patient reports that she has had similar episodes in the past. She previously had gallbladder removed and hysterectomy. PAST MEDICAL/SURGICAL HISTORY: Back pain for which she takes the narcotic medications and has a nerve stimulator in her back in the lumbar area. HOME MEDICATIONS: She is currently on dicyclomine 20 mg t.i.d., gabapentin 800 mg four times a day, omeprazole 20 mg daily, Plavix 75 mg daily, [place] 10/325 mg four times a day, lisinopril 10 mg and topiramate 50 mg b.i.d. ALLERGIES: CIPRO. MORPHINE. TRAMADOL. PHYSICAL EXAMINATION: The patient's vital signs on admission showed her temperature to be 97.0F, pulse 87, respiratory rate 18 and blood pressure 160/101. O2 saturation was 98%. HEENT: Normocephalic, atraumatic. She currently has an NG tube in, apparently at this point with 800 cc out the NG tube. NECK: Supple without lymphadenopathy, thyromegaly or JVD. CHEST: Clear to auscultation. HEART: Regular rate and rhythm without murmurs, rubs or gallops. ABDOMEN: Soft but somewhat tender throughout. EXTREMITIES: Without cyanosis, clubbing or edema. NEUROLOGIC: The patient is alert and oriented x3. LAB DATA AND TESTS: Evaluations in the emergency room included CT scan, which revealed previous history of gastric bypass surgery. Labs on admission with troponins less than 0.012. COVID, RSV and influenza were negative. Her sugar is 133. BUN 18, creatinine 0.75. Sodium slightly low at 136. Amylase and lipase were normal. Her hemoglobin 14.3, white count 20.9 and PLT count 265,000. UA showed specific gravity of 1.034 and was otherwise essentially normal. New CT scan findings favoring distal small bowel obstruction. ASSESSMENT: The patient has been admitted after fluid hydration and NG suctioning. She will have surgical consultation for possibility of small bowel obstruction. We are giving her IV fluids which we will give with 150 cc/hour to get her well hydrated and otherwise she will continue NG suctioning until she starts having some bowel issues from below.
[2021-03-17] MEDS: PROTONIX 40 MG IV IV SCH (10:09)
[2021-03-17 10:32] LABS: ANISOCYTOSIS 1+; BAND 8 % (0.0-2.0); Lymphocytes 10 % (24-44); Monocyte 4 % (0.0-12.0); Neutrophils 78 % (36.0-66.0); Platelet Estimate NORMAL (NORMAL); Total Cells Counted 100; Toxic Granulation 2+
[2021-03-18] MEDS: Hydromorphone 1 mg/ml Injection IV PRN ×6 (00:58→23:40)
[2021-03-18] MEDS: Dextrose 5% -0.45 NaCl 1000 ML 1,000 ML IV SCH ×4 (01:06→22:10)
[2021-03-18] MEDS: Zofran 4 MG/2 ML VIAL IV PRN ×4 (03:09→23:40)
[2021-03-18] MEDS: Zosyn 2.25 GM 2.25 GM in Sodium Chloride 100ML MINI-BAG PLUS 100 ML IV SCH ×4 (05:09→23:14)
[2021-03-18 05:29] LABS: Hematocrit 39.8 % (35-47); Hemoglobin 11.7 gm/dl (12.0-16.0); Mean Cell Volume 106.7 fl (78-100); Mean Corpuscular Hemoglobin 31.4 pg (26-32); Mean Corpuscular Hgb Concent. 29.4 g/dl (32-36); Mean Platelet Volume 10.3 fl (7.5-11.0); Neutrophil % 78.3 % (36.0-66.0); Platelet Count 219 K/mm3 (150-450); Red Blood Count 3.73 M/mm3 (4.1-5.4); Red Cell Distribution Width 14.9 % (11.5-14.0); White Blood Count 22.4 K/mm3 (4.0-10.5)
[2021-03-18 06:22] LABS: ALBUMIN 3.3 g/dL (3.5-5.0); ANION GAP 11.8 MEQ/L (5-15); BILIRUBIN,TOTAL 0.4 mg/dL (0.2-1.3); Calcium 7.4 mg/dL (8.4-10.2); Creatinine 1 1.17 mg/dL (0.52-1.04); EST GLOMERULAR FILTRATION RATE 49.2 ML/MIN; PROCALCITONIN 0.295 ng/mL (0.030-0.080); Potassium 3.6 mmol/L (3.5-5.1); Total Protein 6.2 g/dL (6.3-8.2)
[2021-03-18] MEDS: PROTONIX 40 MG IV IV SCH (08:08)
[2021-03-18 08:10] LABS: BAND 4 % (0.0-2.0); Eosinophil 2 % (0.00-3.0); Lymphocytes 27 % (24-44); Monocyte 1 % (0.0-12.0); Neutrophils 66 % (36.0-66.0); Platelet Estimate NORMAL (NORMAL); Total Cells Counted 100
[2021-03-18] MEDS: BENADRYL 25 MG CAPSULE PO PRN ×2 (08:11→16:17)
[2021-03-18] MEDS: ENOXAPARIN SODIUM SQ SCH (08:11)
[2021-03-18] MEDS: CORTISONE 1% CREAM TP PRN (08:24)
--- NOTE | 2021-03-18 08:37 | XRAY ---
Indication: NG tube placement. Comparison: None KUB nonacute and nonobstructed with NG tube tip in stomach. Visualized solid organs unremarkable. Osseous structures intact with mild osteopenia and degenerative changes. Incidental cholecystectomy clips, right spinal stimulator device/leads, and lumbosacral junction fusion hardware.
--- NOTE | 2021-03-18 08:42 | XRAY ---
Indication: Small bowel obstruction. Comparison: One day earlier. 2 view abdomen again nonacute and nonobstructed with NG tube tip in stomach, cholecystectomy clips, right spinal stimulator device/leads, and lumbosacral junction fusion hardware. No new/acute abnormalities.
--- NOTE | 2021-03-18 12:12 | CONS ---
CONSULT DATE: 03/17/2021 HISTORY: A 65-year-old female had some nausea, abdominal aches. She did have a soft bowel movement yesterday. Apparently she came in yesterday morning. She had CT scan question whether she had partial obstruction. No free air or collection, just had some fluid filled mildly distended loops of bowel, a little bit more distally. PAST MEDICAL/SURGICAL HISTORY: Cholecystectomy done by Dr. Coto in the past. Vaginal hysterectomy in the past which was later followed by oophorectomy. She has had back surgery. She had rods in the past. She had nerve stimulator in the past. She has chronic back problems. MEDICATIONS: Prior to admission, dicyclomine, gabapentin, omeprazole, Plavix, [place], lisinopril, topiramate. ALLERGIES: CIPRO. MORPHINE. TRAMADOL. FAMILY HISTORY: Negative for Crohn's disease. She did have a grandparent she thinks had some colon cancer. SOCIAL HISTORY: No smoking or alcohol abuse. REVIEW OF SYSTEMS: Fourteen systems reviewed. No chest pain or palpitations. She is passing a little bit of flatus today. She had some abdominal aches that are improved some today. She denied any bloody stools. Pertinent for the chronic problems as mentioned above. Other systems negative or noncontributory as above and per preadmission questionnaire. PHYSICAL EXAMINATION: GENERAL: No acute distress. HEENT: Sclera nonicteric. She has NG in position. There were not any films to check placement. There is a moderate amount of drainage in the canister. NECK: No JVD. CHEST: Equal excursion, nonlabored breathing. CVS: Regular rhythm and pulse. ABDOMEN: Soft, mild distension, some minimal tenderness. No peritoneal signs. EXTREMITIES: No cyanosis. NEURO: Alert, moving extremities symmetrically. No gross motor deficits. PSYCH: Appropriate mood and affect. LAB DATA AND TESTS: White count is 31. She was started on some antibiotics. Troponins were negative apparently. IMPRESSION: A 65-year-old apparently came in yesterday. The surgeon dental office receptionist yesterday was apparently not contacted. They asked that I see this patient this afternoon. She is passing some flatus. Question whether she has a partial obstruction, might be she has a little bit of thickening in the distal small bowel loops. Whether this could be an enteritis causing this versus some scar tissue from previous surgery is unclear. Either way she is nontoxic, hemodynamically stable currently. She is passing some flatus. She has an NG. I feel she needs continued trial of NG decompression. If she fails to improve over the next couple of days she may need consideration of small bowel follow through, otherwise she will increase activity, NG decompression and follow serial labs. She agrees to the trial of conservative management. She understands if she fails to improve she may consideration of small bowel follow through and/or intervention. At this time no emergent surgery necessary. I will follow her.
[2021-03-18] MEDS: Pepcid 20 MG VIAL IV SCH (18:10)
[2021-03-19] MEDS: Hydromorphone 1 mg/ml Injection IV PRN ×2 (03:00→06:27)
[2021-03-19] MEDS: Zofran 4 MG/2 ML VIAL IV PRN (04:33)
[2021-03-19] MEDS: Zosyn 2.25 GM 2.25 GM in Sodium Chloride 100ML MINI-BAG PLUS 100 ML IV SCH ×4 (05:01→23:05)
[2021-03-19] MEDS: Dextrose 5% -0.45 NaCl 1000 ML 1,000 ML IV SCH ×3 (05:01→20:09)
[2021-03-19 06:16] LABS: ALBUMIN 3.3 g/dL (3.5-5.0); ALKALINE PHOSPHATASE 85 U/L (38-126); ANION GAP 10.5 MEQ/L (5-15); BLOOD UREA NITROGEN 9 mg/dL (7-17); CHLORIDE 106 mmol/L (98-107); Calcium 7.7 mg/dL (8.4-10.2); Carbon Dioxide 21 mmol/L (22-30); Creatinine 1 0.64 mg/dL (0.52-1.04); EST GLOMERULAR FILTRATION RATE > 60.0 ML/MIN; Glucose 109 mg/dL (74-106); Potassium 3.4 mmol/L (3.5-5.1); SGOT/AST 32 U/L (14-36); SGPT/ALT 21 U/L (0-35); SODIUM 135 mmol/L (137-145); Total Protein 6.3 g/dL (6.3-8.2)
[2021-03-19 07:47] LABS: Absolute Neutrophil Ct (ANC) 8.39 (1.4-6.9); BASOPHIL % 0.3 % (0.0-0.4); Basophil (Absolute #) 0.04 (0-0.4); Eosinophil % 2.6 % (0.00-5.0); Hematocrit 30.8 % (35-47); Hemoglobin 9.3 gm/dl (12.0-16.0); Lymphocyte (Absolute #) 2.12 (1.0-4.6); Mean Cell Volume 102.3 fl (78-100); Mean Corpuscular Hemoglobin 30.9 pg (26-32); Mean Corpuscular Hgb Concent. 30.2 g/dl (32-36); Mean Platelet Volume 10.1 fl (7.5-11.0); Monocyte (Absolute #) 0.91 (0.0-1.3); Monocytes % 7.7 % (0.0-12.0); Neutrophil % 71.4 % (36.0-66.0); Platelet Count 206 K/mm3 (150-450); Red Blood Count 3.01 M/mm3 (4.1-5.4); Red Cell Distribution Width 14.2 % (11.5-14.0); White Blood Count 11.8 K/mm3 (4.0-10.5)
[2021-03-19] MEDS ORDERED: PHARMACY DOSING REQUIRED: VANCOMYCIN IV STA (08:06)
[2021-03-19] MEDS ORDERED: Compazine 10 MG/2 ML IV PRN (08:08)
[2021-03-19] MEDS: DILAUDID 1 MG/1ML PCA IV PRN (08:30)
[2021-03-19] MEDS ORDERED: Narcan 0.4 MG/ML IV PRN (09:00)
[2021-03-19] MEDS: ENOXAPARIN SODIUM SQ SCH (12:21)
[2021-03-19] MEDS: PROTONIX 40 MG IV IV SCH (12:21)
[2021-03-19] MEDS: Pepcid 20 MG VIAL IV SCH ×2 (12:21→21:02)
--- NOTE | 2021-03-19 12:30 | XRAY ---
Indication: Small bowel obstruction. Comparison: One day earlier. KUB unchanged again nonacute and nonobstructed. Stable NG tube tip in stomach, cholecystotomy clips, right spinal stimulator device/leads, and lumbosacral junction fusion hardware. No new/acute abnormalities.
--- NOTE | 2021-03-19 12:36 | XRAY ---
Indication: Small bowel obstruction. Comparison: None 2 view abdomen performed earlier in the day appears nonacute and nonobstructed. Approximately 500 cc of 50-50 Gastrografin and water injected through indwelling NG tube. Multiple overhead and digital spot images obtained. There is normal antegrade movement of the Gastrografin to the level of the right hemicolon within 90 minutes. Large amount of Gastrografin still remains in the stomach. Spot compression of the small bowel loops demonstrates mild uniformly distended duodenal and jejunal bowel loops, ileus versus enteritis. No focal stricture, obstruction, filling defect, or inflammatory changes. Ileal bowel loops more normal in caliber and unremarkable. Normal ileocecal junction. Impression: 1. Mild uniformly distended duodenal and jejunal bowel loops without focal stricture/obstruction. Rule out ileus versus enteritis. 2. Remaining Gastrografin small bowel follow-through exam is negative. 3. Approximately 1 minute of fluoroscopy used.
[2021-03-19] MEDS: VANCOCIN 1 GM VIAL*** 0.75 GM in Sodium Chloride 0.9% 250 ML 250 ML IV SCH ×2 (12:57→21:02)
[2021-03-20] MEDS: Dextrose 5% -0.45 NaCl 1000 ML 1,000 ML IV SCH (03:31)
[2021-03-20] MEDS: DILAUDID 1 MG/1ML PCA IV PRN (03:40)
[2021-03-20] MEDS: Zosyn 2.25 GM 2.25 GM in Sodium Chloride 100ML MINI-BAG PLUS 100 ML IV SCH (05:45)
[2021-03-20 05:48] LABS: Absolute Neutrophil Ct (ANC) 5.38 (1.4-6.9); BASOPHIL % 0.2 % (0.0-0.4); Basophil (Absolute #) 0.02 (0-0.4); Eosinophil % 2.8 % (0.00-5.0); Eosinophil (Absolute #) 0.24 (0-0.5); Hematocrit 29.6 % (35-47); Hemoglobin 9.1 gm/dl (12.0-16.0); Lymphocyte (Absolute #) 1.99 (1.0-4.6); Lymphocytes % 23.1 % (24.0-44.0); Mean Corpuscular Hemoglobin 31.1 pg (26-32); Mean Corpuscular Hgb Concent. 30.7 g/dl (32-36); Mean Platelet Volume 10.2 fl (7.5-11.0); Monocyte (Absolute #) 0.97 (0.0-1.3); Monocytes % 11.3 % (0.0-12.0); Neutrophil % 62.6 % (36.0-66.0); Platelet Count 213 K/mm3 (150-450); Red Blood Count 2.93 M/mm3 (4.1-5.4); Red Cell Distribution Width 13.9 % (11.5-14.0); White Blood Count 8.6 K/mm3 (4.0-10.5)
[2021-03-20 06:03] LABS: ALBUMIN 2.7 g/dL (3.5-5.0); ALKALINE PHOSPHATASE 74 U/L (38-126); ANION GAP 5.6 MEQ/L (5-15); BLOOD UREA NITROGEN 4 mg/dL (7-17); CHLORIDE 109 mmol/L (98-107); Calcium 7.7 mg/dL (8.4-10.2); Carbon Dioxide 25 mmol/L (22-30); Creatinine 1 0.59 mg/dL (0.52-1.04); EST GLOMERULAR FILTRATION RATE > 60.0 ML/MIN; Glucose 110 mg/dL (74-106); Potassium 3.2 mmol/L (3.5-5.1); SGOT/AST 24 U/L (14-36); SGPT/ALT 20 U/L (0-35); SODIUM 136 mmol/L (137-145); Total Protein 5.4 g/dL (6.3-8.2)
--- NOTE | 2021-03-20 08:05 | XRAY ---
Exam: Supine and upright films of the abdomen from 03/20/2021. Comparison: Small bowel series from 03/19/2021 and 2 view abdomen from 03/19/2021. Indication: Small bowel obstruction. Findings: 2 supine images and upright image of the abdomen were obtained. Prior 50% diluted Gastrografin within the stomach and small bowel has now been mostly evacuated, although a small amount of scattered contrast remains throughout the colon from cecum to rectum. I still note mild prominence of jejunal small bowel loops overlying the abdomen. This may reflect enteritis or a mild ileus. There is no free intraperitoneal air. NG tube is seen with the tip pointing toward the left within the gastric fundus. I again note a neurostimulator projected over the upper aspect of the right iliac bone with leads extending toward the lower thoracic region. Orthopedic hardware from prior fusion procedure is again seen at L5-S1. Surgical clips are again seen within the right upper quadrant consistent prior cholecystectomy. No organomegaly is evident. Mild degenerative changes are seen within the lower thoracolumbar spine. Impression: 1. The 50% diluted Gastrografin contrast has now either been evacuated or is scattered throughout the colon representing continued forward movement through the gastrointestinal tract. The current findings do not support a bowel obstruction. However, there is still mild prominence of jejunal small bowel loops across the left hemiabdomen and lower abdomen which may reflect enteritis or ileus. 2. The remainder of the findings appears unchanged.
--- NOTE | 2021-03-20 08:38 | PCM.NOTE ---
Date and Time: 03/20/21 0836 Subjective Assessment: patient is feeling some better today, has had multiple loose stools. did pass some flatus last night, pain has resolved. Objective Exam General Appearance: no apparent distress, obese Respiratory Exam: normal breath sounds, lungs clear, No respiratory distress Cardiovascular Exam: regular rate/rhythm, normal heart sounds Gastrointestinal/Abdomen Exam: soft, No normal bowel sounds (decreased), No tenderness, No distention, No guarding Extremity Exam: normal inspection, normal range of motion OBJECTIVE DATA Vital Signs: Vital Signs - 24 hr Temp Pulse Resp BP Pulse Ox 03/20/21 07:59 98 03/20/21 04:00 98.0 F 85 17 167/76 99 03/20/21 03:40 95 03/20/21 00:00 98.0 F 84 18 139/67 98 03/19/21 19:37 97.1 F 80 18 152/70 95 03/19/21 18:05 98 03/19/21 16:00 97.3 F 86 13 143/63 100 03/19/21 12:00 97.5 F 89 14 166/72 97 Pain Assessment - Last Documented Pain Intensity 5 Pain Scale Used 0-10 Pain Scale Intake and Output: Intake & Output 03/17/21 03/18/21 03/19/21 03/20/21 11:59 11:59 11:59 11:59 Intake Total 1351 3228 3623 4113 Output Total 800 1000 1850 1100 Balance 551 2228 1773 3013 Weight 85 kg 85 kg Lab Results: Lab Results-Last 24 Hours 03/20/21 03/20/21 Range/Units 05:34 05:34 WBC 8.6 (4.0-10.5) K/mm3 RBC 2.93 L (4.1-5.4) M/mm3 Hgb 9.1 L (12.0-16.0) gm/dl Hct 29.6 L (35-47) % MCV 101.0 H (78-100) fl MCH 31.1 (26-32) pg MCHC 30.7 L (32-36) g/dl RDW 13.9 (11.5-14.0) % Plt Count 213 (150-450) K/mm3 MPV 10.2 (7.5-11.0) fl Gran % 62.6 (36.0-66.0) % Eos # (Auto) 0.24 (0-0.5) Absolute Lymphs (auto) 1.99 (1.0-4.6) Absolute Monos (auto) 0.97 (0.0-1.3) Lymphocytes % 23.1 L (24.0-44.0) % Monocytes % 11.3 (0.0-12.0) % Eosinophils % 2.8 (0.00-5.0) % Basophils % 0.2 (0.0-0.4) % Absolute Granulocytes 5.38 (1.4-6.9) Basophils # 0.02 (0-0.4) Sodium 136 L (137-145) mmol/L Potassium 3.2 L (3.5-5.1) mmol/L Chloride 109 H (98-107) mmol/L Carbon Dioxide 25 (22-30) mmol/L Anion Gap 5.6 (5-15) MEQ/L BUN 4 L (7-17) mg/dL Creatinine 0.59 (0.52-1.04) mg/dL Estimated GFR > 60.0 ML/MIN Glucose 110 H (74-106) mg/dL Calcium 7.7 L (8.4-10.2) mg/dL Total Bilirubin 0.30 (0.2-1.3) mg/dL AST 24 (14-36) U/L ALT 20 (0-35) U/L Alkaline Phosphatase 74 (38-126) U/L Serum Total Protein 5.4 L (6.3-8.2) g/dL Albumin 2.7 L (3.5-5.0) g/dL Radiology Exams: Radiology Procedures Category Date Time Status ABDOMEN 2 VIEW Routine Exams 03/19/21 08:00 Completed ABDOMEN 2 VIEW Routine Exams 03/20/21 08:00 Completed SMALL BOWEL SERIES Routine Exams 03/19/21 08:00 Completed Multi-Disciplinary Progress Notes: Multi-Disciplinary Progress Notes 03/19/21 12:54 Case Management Note by Anita Mcconnell NO CHANGE IN DC PLANS, PATIENT CONTINUES TO PLAN TO DC HOME TO HER PRIOR LEVEL OF FUNCTIONING WITH FAMILY AND FRIENDS TO ASSIST IF NEEDED Initialized on 03/19/21 12:54 - END OF NOTE Assessment/Plan (1) Small bowel obstruction Current Visit: Yes Status: Acute Assessment & Plan: improving, surgery following. appears to be resolving, NG orderes per Dr Elizabeth to await lower output. patient is stable Code(s): K56.609 - UNSP INTESTNL OBST, UNSP TO PARTIAL VERSUS COMPLETE OBST (2) Hypokalemia Current Visit: Yes Status: Acute Assessment & Plan: adding K to fluids, repeat in the am Code(s): E87.6 - HYPOKALEMIA
[2021-03-20] MEDS: PROTONIX 40 MG IV IV SCH (09:21)
[2021-03-20] MEDS: Pepcid 20 MG VIAL IV SCH ×2 (09:21→20:34)
[2021-03-20] MEDS: ENOXAPARIN SODIUM SQ SCH (09:21)
[2021-03-20] MEDS: VANCOCIN 1 GM VIAL*** 0.75 GM in Sodium Chloride 0.9% 250 ML 250 ML IV SCH ×2 (09:22→20:34)
[2021-03-20] MEDS: CORTISONE 1% CREAM TP PRN (11:14)
[2021-03-20] MEDS: Zosyn 3.375 GM Vial 3.375 GM in Sodium Chloride 100ML MINI-BAG PLUS 100 ML IV SCH ×3 (11:43→23:45)
[2021-03-20] MEDS: D5W/0.45NS W/ 20mEq KCl 1000 ML 1,000 ML IV SCH (13:30)
[2021-03-20] MEDS: TYLENOL 325 MG PO PRN (17:18)
[2021-03-20] MEDS: Zofran 4 MG/2 ML VIAL IV PRN (18:43)
[2021-03-20] MEDS: Hydromorphone 1 mg/ml Injection IV PRN (20:35)
[2021-03-21] MEDS: Zofran 4 MG/2 ML VIAL IV PRN (01:49)
[2021-03-21] MEDS: Hydromorphone 1 mg/ml Injection IV PRN ×5 (01:55→22:30)
[2021-03-21] MEDS: D5W/0.45NS W/ 20mEq KCl 1000 ML 1,000 ML IV SCH ×2 (02:02→15:51)
[2021-03-21] MEDS: Zosyn 3.375 GM Vial 3.375 GM in Sodium Chloride 100ML MINI-BAG PLUS 100 ML IV SCH ×4 (05:41→23:22)
[2021-03-21] MEDS ORDERED: TROUGH DRUG LEVELS IJ ONE (09:30)
[2021-03-21 09:43] LABS: Absolute Neutrophil Ct (ANC) 5.53 (1.4-6.9); BASOPHIL % 0.2 % (0.0-0.4); Basophil (Absolute #) 0.02 (0-0.4); Eosinophil (Absolute #) 0.17 (0-0.5); Hematocrit 29.6 % (35-47); Hemoglobin 9.3 gm/dl (12.0-16.0); Lymphocyte (Absolute #) 1.84 (1.0-4.6); Lymphocytes % 21.6 % (24.0-44.0); Mean Corpuscular Hemoglobin 30.8 pg (26-32); Mean Corpuscular Hgb Concent. 31.4 g/dl (32-36); Mean Platelet Volume 9.9 fl (7.5-11.0); Monocyte (Absolute #) 0.94 (0.0-1.3); Monocytes % 11.1 % (0.0-12.0); Neutrophil % 65.1 % (36.0-66.0); Platelet Count 223 K/mm3 (150-450); Red Blood Count 3.02 M/mm3 (4.1-5.4); Red Cell Distribution Width 13.3 % (11.5-14.0); White Blood Count 8.5 K/mm3 (4.0-10.5)
[2021-03-21 09:45] LABS: ANION GAP 10.6 MEQ/L (5-15); CHLORIDE 107 mmol/L (98-107); Calcium 8.2 mg/dL (8.4-10.2); Carbon Dioxide 22 mmol/L (22-30); Creatinine 1 0.64 mg/dL (0.52-1.04); EST GLOMERULAR FILTRATION RATE > 60.0 ML/MIN; Glucose 136 mg/dL (74-106); MAGNESIUM 1.5 mg/dL (1.6-2.3); Potassium 3.4 mmol/L (3.5-5.1); SODIUM 136 mmol/L (137-145)
[2021-03-21 09:55] LABS: BLOOD UREA NITROGEN 2 mg/dL (7-17)
[2021-03-21] MEDS: PROTONIX 40 MG IV IV SCH (10:32)
[2021-03-21] MEDS: Pepcid 20 MG VIAL IV SCH ×2 (10:32→20:46)
[2021-03-21] MEDS: ENOXAPARIN SODIUM SQ SCH (10:33)
--- NOTE | 2021-03-21 10:42 | PCM.NOTE ---
Date and Time: 03/21/21 1042 Subjective Assessment: doing ok - Review of Systems Constitutional: No Fever, No Chills Eyes: No Symptoms Ears, Nose, & Throat: No Symptoms Respiratory: No Cough, No Short Of Breath Cardiac: No Chest Pain, No Edema, No Syncope Abdominal/Gastrointestinal: No Abdominal Pain, No Nausea, No Vomiting, No Diarrhea Genitourinary Symptoms: No Dysuria Musculoskeletal: No Back Pain, No Neck Pain Skin: No Rash Neurological: No Dizziness, No Focal Weakness, No Sensory Changes Psychological: No Symptoms Endocrine: No Symptoms Hematologic/Lymphatic: No Symptoms Immunological/Allergic: No Symptoms Objective Exam General Appearance: no apparent distress, alert Neurologic Exam: alert, oriented x 3, cooperative, normal mood/affect, nml cerebellar function, sensation nml, No motor deficits Skin Exam: normal color, warm, dry Eye Exam: PERRL, EOMI, eyes nml inspection Ears, Nose, Throat Exam: normal ENT inspection, pharynx normal, moist mucous membranes Neck Exam: normal inspection, non-tender, supple, full range of motion Respiratory Exam: normal breath sounds, lungs clear, No respiratory distress Cardiovascular Exam: regular rate/rhythm, normal heart sounds Gastrointestinal/Abdomen Exam: soft, No tenderness, No mass Extremity Exam: normal inspection, normal range of motion Back Exam: normal inspection, normal range of motion, No CVA tenderness, No vertebral tenderness Pelvic Exam: deferred Rectal Exam: deferred OBJECTIVE DATA Vital Signs: Vital Signs - 24 hr Temp Pulse Resp BP Pulse Ox 03/21/21 08:00 98.6 F 63 18 205/85 95 03/21/21 07:00 94 L 03/21/21 04:00 97.2 F 61 20 172/72 98 03/21/21 00:00 97.2 F 70 18 137/81 100 03/20/21 19:50 97.3 F 97 H 20 155/67 96 03/20/21 16:00 97.1 F 79 15 127/60 99 03/20/21 14:11 100 03/20/21 12:00 97.1 F 77 18 99 03/20/21 11:46 100 Pain Assessment - Last Documented Pain Intensity 7 Pain Scale Used 0-10 Pain Scale Intake and Output: Intake & Output 03/18/21 03/19/21 03/20/21 03/21/21 11:59 11:59 11:59 11:59 Intake Total 0334 3656 4117 3850 Output Total 1000 1850 1500 2600 Balance 2228 1773 2613 1250 Weight 85 kg Lab Results: Lab Results-Last 24 Hours 03/21/21 03/21/21 03/21/21 Range/Units 09:25 09:25 09:25 WBC 8.5 (4.0-10.5) K/mm3 RBC 3.02 L (4.1-5.4) M/mm3 Hgb 9.3 L (12.0-16.0) gm/dl Hct 29.6 L (35-47) % MCV 98.0 (78-100) fl MCH 30.8 (26-32) pg MCHC 31.4 L (32-36) g/dl RDW 13.3 (11.5-14.0) % Plt Count 223 (150-450) K/mm3 MPV 9.9 (7.5-11.0) fl Gran % 65.1 (36.0-66.0) % Eos # (Auto) 0.17 (0-0.5) Absolute Lymphs (auto) 1.84 (1.0-4.6) Absolute Monos (auto) 0.94 (0.0-1.3) Lymphocytes % 21.6 L (24.0-44.0) % Monocytes % 11.1 (0.0-12.0) % Eosinophils % 2.0 (0.00-5.0) % Basophils % 0.2 (0.0-0.4) % Absolute Granulocytes 5.53 (1.4-6.9) Basophils # 0.02 (0-0.4) Sodium 136 L (137-145) mmol/L Potassium 3.4 L (3.5-5.1) mmol/L Chloride 107 (98-107) mmol/L Carbon Dioxide 22 (22-30) mmol/L Anion Gap 10.6 (5-15) MEQ/L BUN 2 L (7-17) mg/dL Creatinine 0.64 (0.52-1.04) mg/dL Estimated GFR > 60.0 ML/MIN Glucose 136 H (74-106) mg/dL Calcium 8.2 L (8.4-10.2) mg/dL Magnesium 1.5 L (1.6-2.3) mg/dL Vancomycin Trough 6.99 L (10-20) ug/mL Radiology Exams: Radiology Procedures Category Date Time Status ABDOMEN 2 VIEW Routine Exams 03/20/21 08:00 Completed Multi-Disciplinary Progress Notes: Multi-Disciplinary Progress Notes 03/20/21 12:30 (created 03/20/21 17:17) Case Management Note by Anita Mcconnell S/W PATIENT- SHE CONTINUES TO DENY ANY NEW NEEDS. SHE PLANS TO RETURN HOME TO HER PRIOR LEVEL OF FUNCTIONING AT TIME OF DC. SHE REPORTS SHE HAS FAMILY AND FRIENDS THAT CAN ASSIST HER NEEDED Initialized on 03/20/21 17:17 - END OF NOTE Assessment/Plan (1) Hypokalemia Current Visit: Yes Status: Acute Code(s): E87.6 - HYPOKALEMIA (2) Small bowel obstruction Current Visit: Yes Status: Acute Code(s): K56.609 - UNSP INTESTNL OBST, UNSP TO PARTIAL VERSUS COMPLETE OBST
[2021-03-21] MEDS: VANCOCIN 1 GM VIAL*** 0.75 GM in Sodium Chloride 0.9% 250 ML 250 ML IV SCH (11:17)
[2021-03-21] MEDS: Zestril 10 MG PO SCH (13:05)
[2021-03-21] MEDS: Toprol Xl 50 MG PO SCH (15:22)
[2021-03-21] MEDS: TYLENOL 325 MG PO PRN (15:26)
[2021-03-21] MEDS ORDERED: BENTYL 20 MG PO PRN (16:49)
[2021-03-21] MEDS: Neurontin 400 MG PO SCH ×2 (17:52→20:44)
[2021-03-21 19:46] LABS: 027 TOX PROD PRESUMPTIVE NEGATIVE (NEGATIVE); TOXIGENIC C. DIFF ORG NEGATIVE (NEGATIVE)
[2021-03-21] MEDS ORDERED: NORTRIPTYLINE HCL ONE (20:30)
[2021-03-21] MEDS: VANCOMYCIN 1 GRAM/200 ML BAG 1 GM/200 ML PIGGYBACK IV SCH (20:43)
[2021-03-21] MEDS: TOPIRAMATE PO SCH (20:45)
[2021-03-21] MEDS: BENADRYL 25 MG CAPSULE PO PRN (20:45)
[2021-03-21] MEDS ORDERED: NORTRIPTYLINE HCL PO SCH (22:00)
[2021-03-22] MEDS: Neurontin 400 MG PO SCH ×4 (07:45→20:47)
[2021-03-22] MEDS: Zosyn 3.375 GM Vial 3.375 GM in Sodium Chloride 100ML MINI-BAG PLUS 100 ML IV SCH ×2 (07:45→12:49)
--- NOTE | 2021-03-22 08:06 | PCM.NOTE ---
Date and Time: 03/22/21805 Subjective Assessment: doing better - Review of Systems Constitutional: No Fever, No Chills Eyes: No Symptoms Ears, Nose, & Throat: No Symptoms Respiratory: No Cough, No Short Of Breath Cardiac: No Chest Pain, No Edema, No Syncope Abdominal/Gastrointestinal: No Abdominal Pain, No Nausea, No Vomiting, No Diarrhea Genitourinary Symptoms: No Dysuria Musculoskeletal: No Back Pain, No Neck Pain Skin: No Rash Neurological: No Dizziness, No Focal Weakness, No Sensory Changes Psychological: No Symptoms Endocrine: No Symptoms Hematologic/Lymphatic: No Symptoms Immunological/Allergic: No Symptoms Objective Exam General Appearance: no apparent distress, alert Neurologic Exam: alert, oriented x 3, cooperative, normal mood/affect, nml cerebellar function, sensation nml, No motor deficits Skin Exam: normal color, warm, dry Eye Exam: PERRL, EOMI, eyes nml inspection Ears, Nose, Throat Exam: normal ENT inspection, pharynx normal, moist mucous membranes Neck Exam: normal inspection, non-tender, supple, full range of motion Respiratory Exam: normal breath sounds, lungs clear, No respiratory distress Cardiovascular Exam: regular rate/rhythm, normal heart sounds Gastrointestinal/Abdomen Exam: soft, No tenderness, No mass Extremity Exam: normal inspection, normal range of motion Back Exam: normal inspection, normal range of motion, No CVA tenderness, No vertebral tenderness Pelvic Exam: deferred Rectal Exam: deferred OBJECTIVE DATA Vital Signs: Vital Signs - 24 hr Temp Pulse Resp BP Pulse Ox 03/22/21 04:00 97.7 F 60 18 145/83 96 03/21/21 23:47 97.5 F 61 20 129/68 97 03/21/21 20:02 97.9 F 73 18 158/76 99 03/21/21 19:35 96 03/21/21 16:00 97.3 F 59 L 17 145/80 96 03/21/21 12:00 96.9 F 66 22 190/80 99 Pain Assessment - Last Documented Pain Intensity 4 Pain Scale Used 0-10 Pain Scale Intake and Output: Intake & Output 03/19/21 03/20/21 03/21/21 03/22/21 11:59 11:59 11:59 11:59 Intake Total 3623 4113 3850 2189 Output Total 1850 1500 2600 Balance 1773 2613 1250 2189 Weight 85 kg Lab Results: Lab Results-Last 24 Hours 03/21/21 03/21/21 03/21/21 Range/Units 09:25 09:25 09:25 WBC 8.5 (4.0-10.5) K/mm3 RBC 3.02 L (4.1-5.4) M/mm3 Hgb 9.3 L (12.0-16.0) gm/dl Hct 29.6 L (35-47) % MCV 98.0 (78-100) fl MCH 30.8 (26-32) pg MCHC 31.4 L (32-36) g/dl RDW 13.3 (11.5-14.0) % Plt Count 223 (150-450) K/mm3 MPV 9.9 (7.5-11.0) fl Gran % 65.1 (36.0-66.0) % Eos # (Auto) 0.17 (0-0.5) Absolute Lymphs (auto) 1.84 (1.0-4.6) Absolute Monos (auto) 0.94 (0.0-1.3) Lymphocytes % 21.6 L (24.0-44.0) % Monocytes % 11.1 (0.0-12.0) % Eosinophils % 2.0 (0.00-5.0) % Basophils % 0.2 (0.0-0.4) % Absolute Granulocytes 5.53 (1.4-6.9) Basophils # 0.02 (0-0.4) Sodium 136 L (137-145) mmol/L Potassium 3.4 L (3.5-5.1) mmol/L Chloride 107 (98-107) mmol/L Carbon Dioxide 22 (22-30) mmol/L Anion Gap 10.6 (5-15) MEQ/L BUN 2 L (7-17) mg/dL Creatinine 0.64 (0.52-1.04) mg/dL Estimated GFR > 60.0 ML/MIN Glucose 136 H (74-106) mg/dL Calcium 8.2 L (8.4-10.2) mg/dL Magnesium 1.5 L (1.6-2.3) mg/dL Vancomycin Trough 6.99 L (10-20) ug/mL C. difficile Screen (NEGATIVE) C.difficile [id number] (NEGATIVE) 03/21/21 Range/Units 18:59 WBC (4.0-10.5) K/mm3 RBC (4.1-5.4) M/mm3 Hgb (12.0-16.0) gm/dl Hct (35-47) % MCV (78-100) fl MCH (26-32) pg MCHC (32-36) g/dl RDW (11.5-14.0) % Plt Count (150-450) K/mm3 MPV (7.5-11.0) fl Gran % (36.0-66.0) % Eos # (Auto) (0-0.5) Absolute Lymphs (auto) (1.0-4.6) Absolute Monos (auto) (0.0-1.3) Lymphocytes % (24.0-44.0) % Monocytes % (0.0-12.0) % Eosinophils % (0.00-5.0) % Basophils % (0.0-0.4) % Absolute Granulocytes (1.4-6.9) Basophils # (0-0.4) Sodium (137-145) mmol/L Potassium (3.5-5.1) mmol/L Chloride (98-107) mmol/L Carbon Dioxide (22-30) mmol/L Anion Gap (5-15) MEQ/L BUN (7-17) mg/dL Creatinine (0.52-1.04) mg/dL Estimated GFR ML/MIN Glucose (74-106) mg/dL Calcium (8.4-10.2) mg/dL Magnesium (1.6-2.3) mg/dL Vancomycin Trough (10-20) ug/mL C. difficile Screen NEGATIVE (NEGATIVE) C.difficile [id number] PRESUMPTIVE NEGATIVE (NEGATIVE) Radiology Exams: Radiology Procedures Category Date Time Status ABDOMEN 2 VIEW Routine Exams 03/20/21 08:00 Completed Multi-Disciplinary Progress Notes: Multi-Disciplinary Progress Notes 03/21/21 13:25 Pharmacy Note by Clay Buck current trough = 6.48 on Vancomycin 750 mg q12h adjust dosing as below Pharmacokinetic dosing service Date: 03/21/21 Time: 1330 Objective: Patient: Rosa Winter Floor: [address] Age: 65 yo Serum creatinine: 0.64 mg/dL Height: 64 Inches Weight (kg): 85 Diagnosis: Small Bowel Obstruction Relevant medical/social history: Cultures and sensitivities: No Growth Other labs: sr cr = 0.64 Assessment: IBW (kg): 54.70 Dosing wt(kg): 85 Estimated Creatinine clearance (ml/min): 74.7 CRCL method: Cockcroft and Gault using ibw(default). Drug selected: Vancomycin Loading dose (mg): 0 Vd (liters): 59.5 (factor used: 0.7 L/kg) Bebo (hr-1): 0.066 Half life (hrs): 10.50 Recommended dose: 1000 mg Interval: 12 hrs Infusion time (hrs): 2.0 Predicted peak (mcg/mL): 28.8 Predicted trough (mcg/mL): 14.89 Total body weight is being used for vancomycin dosing. Renal function is stable [XXXX] /unstable [ ] Recommendations: Give Vancomycin 1000 mg q 12 hrs with an expected Cpeak of 28.8 mcg/ml and an expected Ctrough of 14.89 mcg/ml Renal dosing of other antibiotics (review renal dosing of other medications and list guidelines here): Italo Thank you for the consult, will continue to follow. Signature: desi buck will increase dose to 1 gm q21h Initialized on 03/21/21 13:25 - END OF NOTE Assessment/Plan (1) Small bowel obstruction Current Visit: Yes Status: Resolved Code(s): K56.609 - UNSP INTESTNL OBST, UNSP TO PARTIAL VERSUS COMPLETE OBST (2) Hypokalemia Current Visit: Yes Status: Resolved Code(s): E87.6 - HYPOKALEMIA
[2021-03-22] MEDS: PLAVIX 75 MG Tablet PO SCH (10:46)
[2021-03-22] MEDS: Zestril 10 MG PO SCH (10:46)
[2021-03-22] MEDS: TOPIRAMATE PO SCH ×2 (10:46→20:47)
[2021-03-22] MEDS: Toprol Xl 50 MG PO SCH (10:46)
[2021-03-22] MEDS: PROTONIX 40 MG IV IV SCH (10:47)
[2021-03-22] MEDS: ESTRACE 1 MG PO SCH (10:47)
[2021-03-22] MEDS: VANCOMYCIN 1 GRAM/200 ML BAG 1 GM/200 ML PIGGYBACK IV SCH (10:47)
[2021-03-22] MEDS: Pepcid 20 MG VIAL IV SCH (10:47)
[2021-03-22] MEDS: ENOXAPARIN SODIUM SQ SCH (10:49)
[2021-03-22] MEDS ORDERED: ZOFRAN ODT 4 MG PO PRN (12:32)
[2021-03-22] MEDS: HYDROCODONE-ACETAMIN 10-325 MG PO PRN ×2 (13:20→20:45)
[2021-03-22] MEDS: Protonix 40MG Tablet PO SCH (13:20)
[2021-03-22] MEDS: CEFTIN 500 MG PO SCH ×2 (13:20→20:46)
[2021-03-22 15:03] LABS: ALBUMIN 2.8 g/dL (3.5-5.0); ALKALINE PHOSPHATASE 71 U/L (38-126); ANION GAP 11.5 MEQ/L (5-15); BLOOD UREA NITROGEN 4 mg/dL (7-17); CHLORIDE 106 mmol/L (98-107); Calcium 8.9 mg/dL (8.4-10.2); Carbon Dioxide 23 mmol/L (22-30); Creatinine 1 0.66 mg/dL (0.52-1.04); EST GLOMERULAR FILTRATION RATE > 60.0 ML/MIN; Glucose 126 mg/dL (74-106); MAGNESIUM 1.5 mg/dL (1.6-2.3); Potassium 3.3 mmol/L (3.5-5.1); SGOT/AST 23 U/L (14-36); SGPT/ALT 25 U/L (0-35); SODIUM 137 mmol/L (137-145); Total Protein 5.5 g/dL (6.3-8.2)
[2021-03-22] MEDS ORDERED: K-LYTE 25 MEQ PO ONE (16:26)
[2021-03-22] MEDS ORDERED: MAG-OX 400 PO ONE (16:27)
[2021-03-22] MEDS: Pepcid 20 MG PO SCH (20:46)
[2021-03-22] MEDS: BENADRYL 25 MG CAPSULE PO PRN (20:47)
[2021-03-22] MEDS ORDERED: NORTRIPTYLINE HCL PO SCH (22:00)
[2021-03-23] MEDS: HYDROCODONE-ACETAMIN 10-325 MG PO PRN (03:18)
[2021-03-23 04:03] VITALS: O2SAT 99
[2021-03-23] MEDS: Neurontin 400 MG PO SCH (05:00)
[2021-03-23 06:20] LABS: ALBUMIN 3.2 g/dL (3.5-5.0); ALKALINE PHOSPHATASE 72 U/L (38-126); ANION GAP 9.1 MEQ/L (5-15); BLOOD UREA NITROGEN 6 mg/dL (7-17); CHLORIDE 103 mmol/L (98-107); Calcium 8.8 mg/dL (8.4-10.2); Carbon Dioxide 28 mmol/L (22-30); Creatinine 1 0.73 mg/dL (0.52-1.04); EST GLOMERULAR FILTRATION RATE > 60.0 ML/MIN; Glucose 98 mg/dL (74-106); Potassium 3.7 mmol/L (3.5-5.1); SGOT/AST 22 U/L (14-36); SGPT/ALT 25 U/L (0-35); SODIUM 136 mmol/L (137-145)
[2021-03-23 07:35] VITALS: BP 189/81; PULSE 79
[2021-03-23] MEDS: Zestril 10 MG PO SCH (09:09)
[2021-03-23] MEDS: ESTRACE 1 MG PO SCH (09:10)
[2021-03-23] MEDS: Protonix 40MG Tablet PO SCH (09:10)
[2021-03-23] MEDS: ENOXAPARIN SODIUM SQ SCH (09:10)
[2021-03-23] MEDS: TOPIRAMATE PO SCH (09:10)
[2021-03-23] MEDS: PLAVIX 75 MG Tablet PO SCH (09:10)
[2021-03-23] MEDS: Toprol Xl 50 MG PO SCH (09:10)
[2021-03-23] MEDS: CEFTIN 500 MG PO SCH (09:10)
[2021-03-23] MEDS: Pepcid 20 MG PO SCH (09:10)
[2021-03-23] MEDS ORDERED: IMODIUM 2 MG PO ONE (09:37)
--- NOTE | 2021-03-24 15:22 | DS ---
DISCHARGE DIAGNOSES: 1) ILEUS. 2) HYPOKALEMIA. 3) LOW MAGNESIUM LEVELS. HOSPITAL COURSE: The patient is a 65-year-old white female brought to the hospital for vomiting issues. She had what was thought to be a small bowel obstruction. Surgical consultation was obtained and did evaluation and felt that no surgery was needed. The patient was several days with NG tube in and was discontinued and allowed to have clear liquid diet and then to a more regular diet after the small bowel follow through showed the patient did not have an obstruction. Since that time the patient had a new line placed in the left arm which currently caused some irritation. She had significant ecchymosis over that area which seemed to resolve and she was able to move her hand okay without only minimal amount of pain presently. It was thought that there might be some nerve injury during the placement of the line. Otherwise the patient developed some diarrhea which was negative for fecal occult blood and negative for clostridium difficile. We gave her some Imodium to help slow the bowel movements down and she is on more regular diet by the morning of 03/23/2021 and it was felt that she was ready for discharge home. The patient was instructed to follow up in the office in one week and to call if she had any further problems in the interim. At this point she is back on her usual home medications and having regular meals.
== END 2021-03-23 09:54 | disposition home or self-care (01) | DRG 390 ==
LOC: ED 12:09 → MED SURG 17:38 → OBSVTOIN 03-17 08:30
PROVIDERS: ADMIT Family Medicine; ATTEND Family Medicine
DX: K56.7 Ileus, unspecified (principal); E87.6 Hypokalemia; E61.2 Magnesium deficiency; R11.2 Nausea with vomiting, unspecified; R10.9 Unspecified abdominal pain; R53.1 Weakness; R19.7 Diarrhea, unspecified; Z79.899 Other long term (current) drug therapy; Z20.828 Contact with and (suspected) exposure to other viral communicable diseases; Z79.01 Long term (current) use of anticoagulants
CPT/HCPCS: 0241U; 36000; 36415; 74018; 74021; 74177; 74250; 76937; 80048; 80053; 80202; 81001; 82150; 83690; 83735; 84145; 84484; 85025; 87040; 87493; 93005; 93268; 94760; 94762; 96360; 96374; 96375; 96376; 99285; G0328; G0378; 82274; J1170; J1650; J2405; J2543; J3010; J3370; Q0162; A9270-GY

== ENCOUNTER 2021-04-29 08:50 | Day surgery (SDC) | payer MEDICARE ==
[2021-04-29] MEDS ORDERED: Decadron 4 MG INJ IV ONE (08:51)
[2021-04-29] MEDS ORDERED: LIDOCAINE HCL 2% 100 MG/5 ML IJ ONE (08:51)
[2021-04-29] MEDS ORDERED: DIPRIVAN 200 MG/20 ML IV ONE (10:29)
[2021-04-29] MEDS ORDERED: Xylocaine-Mpf 2% 5 Ml Vial ONE ×2 (10:39→10:45)
--- NOTE | 2021-04-29 12:59 | XRAY ---
Indication: Right C2-C4 MBB. Intraoperative fluoroscopy provided for 36 seconds. 2 digital spot images submitted for interpretation demonstrates posterior needle tips projecting over the expected right C2-C4 nerve roots. Correlate with intraoperative findings/report.
--- NOTE | 2021-04-29 13:50 | XRAY ---
36 seconds of fluoroscopy was used in surgery for a right C2-C4 MBB.
== END 2021-04-29 10:43 | disposition home or self-care (01) ==
LOC: SDC-PAIN 08:50
PROVIDERS: ATTEND Psychiatry & Neurology Pain Medicine
DX: M47.812 Spondylosis without myelopathy or radiculopathy, cervical region (principal); I10 Essential (primary) hypertension; Z79.899 Other long term (current) drug therapy
CPT/HCPCS: 64490; 64491; 72040; 77002; J1100; J2704

== ENCOUNTER 2021-07-22 11:41 | Day surgery (SDC) | payer MEDICARE ==
[2021-07-22] MEDS ORDERED: Xylocaine-Mpf 2% 5 Ml Vial ONE (14:11)
[2021-07-22] MEDS ORDERED: Lactated Ringers 1,000 ML IV ONE (14:25)
[2021-07-22] MEDS ORDERED: DIPRIVAN 200 MG/20 ML IV ONE (14:56)
--- NOTE | 2021-07-22 16:45 | XRAY ---
Indication: Left C2-C4 MBB. Intraoperative fluoroscopy provided for 21 seconds. 2 digital spot images submitted for interpretation demonstrates posterior needle tips projecting over the expected left C2-C4 nerve roots. Correlate with intraoperative findings/report.
--- NOTE | 2021-07-22 16:47 | XRAY ---
21 seconds fluoroscopy time in surgery for left C2-C4 MBB.
== END 2021-07-22 15:25 | disposition home or self-care (01) ==
LOC: SDC-PAIN 11:41
PROVIDERS: ATTEND Psychiatry & Neurology Pain Medicine
DX: M47.812 Spondylosis without myelopathy or radiculopathy, cervical region (principal); Z79.899 Other long term (current) drug therapy
CPT/HCPCS: 72040; 77002; J2704

== ENCOUNTER 2021-08-26 13:11 | Day surgery (SDC) | payer MEDICARE ==
[2021-08-26] MEDS ORDERED: Decadron 4 MG INJ IV ONE (13:12)
[2021-08-26] MEDS ORDERED: BUPIVACAINE 0.5% VIAL IJ ONE (13:12)
[2021-08-26] MEDS ORDERED: Xylocaine 1% Vial 30 ML PF IJ ONE (13:12)
[2021-08-26] MEDS ORDERED: XYLOCAINE 1% HCL 20 ML MDV ONE (15:15)
[2021-08-26] MEDS ORDERED: DIPRIVAN 200 MG/20 ML IV ONE ×2 (16:49→17:00)
[2021-08-26] MEDS ORDERED: Lactated Ringers 1,000 ML IV ONE (19:30)
--- NOTE | 2021-08-26 20:34 | XRAY ---
Indication: Left C2-C4 RFA. Intraoperative fluoroscopy provided for 1 minute. 3 digital spot images submitted for interpretation demonstrates posterior needle tips projecting over the expected left C2-C4 nerve roots. Correlate with intraoperative findings/report.
--- NOTE | 2021-08-27 08:55 | XRAY ---
1 minute fluoroscopy time in surgery for left C2-C4 RFA.
== END 2021-08-26 17:40 | disposition home or self-care (01) ==
LOC: SDC-PAIN 13:11
PROVIDERS: ATTEND Psychiatry & Neurology Pain Medicine
DX: M47.812 Spondylosis without myelopathy or radiculopathy, cervical region (principal); I10 Essential (primary) hypertension; Z79.899 Other long term (current) drug therapy
CPT/HCPCS: 01939; 36140; 64633; 64634; 72040; 76942; 77002; 82947; J1100; J2001; J2704

== ENCOUNTER 2022-01-20 14:37 | Day surgery (SDC) | payer MEDICARE ==
[2022-01-20] MEDS ORDERED: XYLOCAINE-MPF 1% 5ML SDV IJ ONE (14:38)
[2022-01-20] MEDS ORDERED: Sodium Chloride 0.9(Preservative Free) 10 ML IJ ONE (14:38)
[2022-01-20] MEDS ORDERED: Depo-Medrol 40 MG/ML IM ONE (14:38)
[2022-01-20] MEDS ORDERED: Xylocaine-Mpf 2% 5 Ml Vial ONE (15:47)
[2022-01-20] MEDS ORDERED: DIPRIVAN 200 MG/20 ML IV ONE (17:14)
[2022-01-20] MEDS ORDERED: Lactated Ringers 1,000 ML IV ONE (17:41)
--- NOTE | 2022-01-20 19:46 | XRAY ---
Indication: Lumbar ILSA. Intraoperative fluoroscopy provided for 14 seconds. 2 digital spot images submitted for interpretation demonstrates posterior needle tip projecting posterior to L3-L4 interspace. Small amount of contrast injected for needle tip placement. Correlate with intraoperative findings/report. Incidental partially visualized lumbosacral junction posterior fusion hardware.
--- NOTE | 2022-01-21 10:58 | XRAY ---
14 seconds of fluoroscopy was used in surgery for a lumbar ILSA.
== END 2022-01-20 17:40 | disposition home or self-care (01) ==
LOC: SDC-PAIN 14:37
PROVIDERS: ATTEND Psychiatry & Neurology Pain Medicine
DX: M54.16 Radiculopathy, lumbar region (principal); Z79.899 Other long term (current) drug therapy
CPT/HCPCS: 36410; 62323; 72100; 76942; 77003; J1030; J2704; Q9966

== ENCOUNTER 2022-04-07 12:11 | Observation (INO) | payer MEDICARE ==
[2022-04-07 13:02] LABS: Appearance CLEAR (CLEAR); Bilirubin NEGATIVE (NEGATIVE); Dipstick done @ ? MAIN LAB; Epithelial Cells RARE /HPF (FEW); Glucose NEGATIVE (NEGATIVE); Ketones NEGATIVE (NEGATIVE); Mucus SLIGHT /HPF (NEGATIVE); Nitrite NEGATIVE (NEGATIVE); Protein,Urine Dip NEGATIVE (Negative); RBC NEGATIVE Ery/ul (0-5); Urine Cultured Indicated? NO; Urobilinogen 0.2 mg/dL (0-1)
[2022-04-07 13:08] LABS: Absolute Neutrophil Ct (ANC) 4.85 x10^3/uL (1.4-6.9); Basophil (Absolute #) 0.03 x10^3/uL (0-0.4); Eosinophil % 0.5 % (0.00-5.0); Eosinophil (Absolute #) 0.04 x10^3/uL (0-0.5); Hematocrit 36.6 % (35-47); Hemoglobin 11.9 g/dL (12.0-16.0); Lymphocyte (Absolute #) 1.56 x10^3/uL (1.0-4.6); Lymphocytes % 20.5 % (24.0-44.0); Mean Cell Volume 98.9 fL (78-100); Mean Corpuscular Hemoglobin 32.2 pg (26-32); Mean Corpuscular Hgb Concent. 32.5 g/dL (32-36); Monocyte (Absolute #) 1.08 x10^3/uL (0.0-1.3); Monocytes % 14.2 % (0.0-12.0); Neutrophil % 63.6 % (36.0-66.0); Platelet Count 177 x10^3/uL (150-450); White Blood Count 7.6 x10^3/uL (4.0-10.5)
--- NOTE | 2022-04-07 13:08 | ERPHSYRPT ---
- History of Present Illness Time Seen by Provider: 04/07/22 14:37 Source: patient Physician History: 66-year-old female presents to our ED for evaluation of syncope. Patient had a syncopal episode this morning at home. Patient states she has been feeling unwell. Patient tested positive for COVID. Patient's COVID test was at home test that was performed yesterday. Patient has chronic back pain. Patient now complains of acute on chronic back pain. Pain described as an ache that is localized. No radiation. No neck pain. Cervical spine cleared clinically. Symptoms are constant. Symptoms are mild to moderate in intensity. No specific worsening improving factors. Voices no other complaints or concerns at this time. Portions of this note were created with voice recognition technology. There may be grammatical, spelling, punctuation or sound alike errors Timing/Duration: today Severity: moderate Modifying Factors: Improves With: nothing Associated Symptoms: denies symptoms Allergies/Adverse Reactions: ciprofloxacin [From Cipro] Allergy (Severe, Verified 04/07/22 12:30) Hives morphine Adverse Reaction (Severe, Verified 04/07/22 12:30) passes out tramadol [From Ultram] Adverse Reaction (Intermediate, Verified 04/07/22 12:30) Diarrhea Home Medications: Dicyclomine HCl 20 mg [Bentyl 20 mg] 20 mg PO TID 06/08/16 [History] Gabapentin 800 mg PO Q6H 06/08/16 [History] Omeprazole 20 MG [Prilosec 20 mg] 20 mg PO DAILY 06/08/16 [History] Clopidogrel Bisulfate [PLAVIX Tablet] 75 mg PO DAILY 03/16/21 [History] Diphenhydramine HCl [Benadryl Allergy] 50 mg PO HS 03/16/21 [History] Hydrocodone/Acetaminophen [Hydrocodone-Acetamin 10-325 mg] 1 ea PO Q6H 03/16/21 [History] Lisinopril 10 mg [Zestril 10 MG] 10 mg PO DAILY 03/16/21 [History] Nortriptyline HCl 75 mg PO HS 03/16/21 [History] Topiramate 50 mg PO BID 03/16/21 [History] estradioL [Estradiol] 2 mg PO DAILY 03/16/21 [History] Baclofen 5 mg PO UD PRN 03/17/21 [History] Baclofen 10 mg [Lioresal 10 mg] 10 mg PO HS 03/17/21 [History] Metoprolol Succinate 50 mg [Toprol Xl 50 MG] 50 mg PO DAILY 03/21/21 [History] Hx Tetanus, Diphtheria Vaccination/Date Given: No Hx Influenza Vaccination/Date Given: No Hx Pneumococcal Vaccination/Date Given: No Travel Risk - Vaccine Status Have you recieved a Covid-19 vaccination: Yes Email Administrator: Moderna - Vaccination Dates Date of 2cond Vaccination (if applicable): ? - Review of Systems Constitutional: No Symptoms, No Fever, No Chills Eyes: No Symptoms Ears, Nose, & Throat: No Symptoms Respiratory: No Symptoms, No Cough, No Dyspnea Cardiac: No Symptoms, No Chest Pain, No Edema, No Syncope Abdominal/Gastrointestinal: No Symptoms, No Abdominal Pain, No Nausea, No Vomiting, No Diarrhea Genitourinary Symptoms: No Symptoms, No Dysuria Musculoskeletal: No Symptoms, No Back Pain, No Neck Pain Skin: No Symptoms, No Rash Neurological: No Symptoms, No Dizziness, No Focal Weakness, No Sensory Changes Psychological: No Symptoms Endocrine: No Symptoms Hematologic/Lymphatic: No Symptoms Immunological/Allergic: No Symptoms All Other Systems: Reviewed and Negative - Past Medical History Pertinent Past Medical History: Yes Neurological History: Migraines, Peripheral Neuropathy ENT History: No Pertinent History Cardiac History: Hypertension Respiratory History: Other Endocrine Medical History: No Pertinent History Musculoskeletal History: Degenerative Disk Disease GI Medical History: No Pertinent History History: No Pertinent History Psycho-Social History: No Pertinent History Female Reproductive Disorders: No Pertinent History Other Medical History: HX OF COVID - NO RESIDUAL. PATIENT IS VACCINATED AGAINST COVID. HAS HAD 5 SURGERIES RELATED TO PLACEMENT OF NEURO STIMULATOR FOR BACK PAIN BUT PATIENT REPORTS FAILED. STIMULATOR IN PLACE BUT DOES NOT TURN ON AND BATTERY HAS . STATES HAD 2-3 SURGERIES PRIOR TO STIMULATOR PLACEMENT. covid 2021. chronic back pain. OTHER SX HX: RIGHT TSR 2019 AND RIGHT TKR 2020 - Past Surgical History Past Surgical History: Yes Neuro Surgical History: Other Cardiac: Cardiac Catheterization Respiratory: No Pertinent History Gastrointestinal: Appendectomy, Cholecystectomy Genitourinary: No Pertinent History Musculoskeletal: Other Female Surgical History: Hysterectomy Other Surgical History: pt has a neuro stimulator, bilateral carpal tunnel.,torn/repair right shoulder cuff,states total of five back surgeries(cervical fusion 30 yr ago,lumbar fusion,laminectomy) - Social History Smoking Status: Never smoker Exposure to second hand smoke: No Drug Use: none Patient Lives Alone: Yes Significant Family History: no pertinent family hx - Nursing Vital Signs Nursing Vital Signs: Initial Vital Signs Temperature 97.3 F 04/07/22 12:27 Pulse Rate 86 04/07/22 12:27 Respiratory Rate 18 04/07/22 12:27 Blood Pressure 122/68 04/07/22 12:27 O2 Sat by Pulse Oximetry 97 04/07/22 12:27 Pain Scale Pain Intensity 0 - Physical Exam General Appearance: no apparent distress, alert Eye Exam: PERRL/EOMI, eyes nml inspection Ears, Nose, Throat Exam: normal ENT inspection, TMs normal, pharynx normal, moist mucous membranes Neck Exam: normal inspection, non-tender, supple, full range of motion Respiratory Exam: normal breath sounds, lungs clear, airway intact, No respiratory distress Cardiovascular Exam: regular rate/rhythm, normal heart sounds, normal peripheral pulses Gastrointestinal/Abdomen Exam: soft, normal bowel sounds, No tenderness, No mass Back Exam: normal inspection, normal range of motion, No CVA tenderness, No vertebral tenderness Extremity Exam: normal inspection, normal range of motion, pelvis stable Neurologic Exam: alert, oriented x 3, cooperative, normal mood/affect, nml cerebellar function, nml station & gait, sensation nml, No motor deficits Skin Exam: normal color, warm, dry, No rash Lymphatic Exam: No adenopathy SpO2: 93 - Course Nursing assessment & vital signs reviewed: Yes EKG Interpreted by Me: RATE (81), Sinus Rhythm, NORMAL AXIS, NORMAL INTERVALS - Radiology Exams Chest X-ray Interpretation: Teleradiologist Report (Nonacute chest with chronic features) - CT Exams Lumbar Spine CT Interpretation: Tele-radiologist Report (Stable L2-L4, degenerative disc disease, L4-L5 facet hypertrophy L2 L4) Head CT Interpretation: Tele-radiologist Report (Normal CT head.) Ordered Tests: Active Orders 24 hr Category Date Time Status Supervisor Order Takers STAT Care 04/07/22 12:44 Active EKG-ER Only STAT Care 04/07/22 12:43 Active IV Insertion STAT Care 04/07/22 12:43 Active Pulse Oximetry (ED) STAT Care 04/07/22 12:43 Active CHEST 1 VIEW (PORTABLE) Stat Exams 04/07/22 12:44 Completed CHEST WITH CONTRAST [CT] Stat Exams 04/07/22 13:48 Taken HEAD WITHOUT CONTRAST [CT] Stat Exams 04/07/22 12:45 Completed LUMBAR SPINE W/O [CT] Stat Exams 04/07/22 12:45 Completed CBC W DIFF Stat Lab 04/07/22 12:48 Completed CMP Stat Lab 04/07/22 12:48 Completed D-DIMER QUANTITATIVE Stat Lab 04/07/22 12:48 Completed NT PRO BNP Stat Lab 04/07/22 12:48 Completed TROPONIN Q4H Lab 04/07/22 12:48 Completed TROPONIN Q4H Lab 04/07/22 16:48 Completed TROPONIN Q4H Lab 04/07/22 20:45 Ordered UA W/RFX CULTURE Stat Lab 04/07/22 12:52 Completed Transfer Order Routine Transfer 04/07/22 Ordered Medication Summary Discontinued Medications Generic Name Dose Route Start Last Admin Trade Name Freq PRN Reason Stop Dose Admin Lidocaine HCl Confirm 04/07/22 15:22 Lidocaine - Mpf 2% 5 Ml Vial Administered 04/07/22 15:23 Dose 5 ml .ROUTE .[facility] Lab/Rad Data: Laboratory Result Diagrams 04/07/22 12:48 04/07/22 12:48 Laboratory Results 04/07/22 04/07/22 04/07/22 Range/Units 16:48 12:52 12:48 WBC (4.0-10.5) x10^3/uL RBC (4.1-5.4) x10^6/uL Hgb (12.0-16.0) g/dL Hct (35-47) % MCV (78-100) fL MCH (26-32) pg MCHC (32-36) g/dL RDW (11.5-14.0) % Plt Count (150-450) x10^3/uL MPV (7.5-11.0) fL Gran % (36.0-66.0) % Immature Gran % (Auto) (0.00-0.4) % Nucleat RBC Rel Count (0.00-0.1) % Eos # (Auto) (0-0.5) x10^3/uL Immature Gran # (Auto) (0.00-0.03) x10^3u/L Absolute Lymphs (auto) (1.0-4.6) x10^3/uL Absolute Monos (auto) (0.0-1.3) x10^3/uL Absolute Nucleated RBC (0.00-0.01) x10^3u/L Lymphocytes % (24.0-44.0) % Monocytes % (0.0-12.0) % Eosinophils % (0.00-5.0) % Basophils % (0.0-0.4) % Absolute Granulocytes (1.4-6.9) x10^3/uL Basophils # (0-0.4) x10^3/uL D-Dimer (0.0-0.50) mg/L Sodium (137-145) mmol/L Potassium (3.5-5.1) mmol/L Chloride (98-107) mmol/L Carbon Dioxide (22-30) mmol/L Anion Gap (5-15) MEQ/L BUN (7-17) mg/dL Creatinine (0.52-1.04) mg/dL Estimated GFR ML/MIN Glucose (74-106) mg/dL Calcium (8.4-10.2) mg/dL Total Bilirubin (0.2-1.3) mg/dL AST (14-36) U/L ALT (0-35) U/L Alkaline Phosphatase (38-126) U/L Troponin I < 0.012 (0.000-0.034) ng/mL NT-Pro-B Natriuret Pep (0-900) pg/mL Serum Total Protein (6.3-8.2) g/dL Albumin (3.5-5.0) g/dL Urinalys Dipstick Clnc MAIN LAB Urine Color YELLOW (YELLOW) Urine Appearance CLEAR (CLEAR) Urine pH 5.0 (5-6) Ur Specific [place] 1.020 (1.005-1.025) POC Urine Protein Conf NEGATIVE (Negative) Urine Ketones NEGATIVE (NEGATIVE) Urine Nitrite NEGATIVE (NEGATIVE) Urine Bilirubin NEGATIVE (NEGATIVE) Urine Urobilinogen 0.2 (0-1) mg/dL Urine Leukocytes NEGATIVE (NEGATIVE) Urine WBC (Auto) 3-5 A (0-5) /HPF Urine RBC (Auto) NONE (0-2) /HPF U Hyaline Cast (Auto) 6-10 A (0-2) /LPF U Epithel Cells (Auto) RARE (FEW) /HPF Urine Bacteria (Auto) NONE (NEGATIVE) /HPF Urine RBC NEGATIVE (0-5) Prince/ul Urine Mucus (Auto) SLIGHT A (NEGATIVE) /HPF Ur Culture Indicated? NO Urine Glucose NEGATIVE (NEGATIVE) mg/dL Influenza Type A Ag NEGATIVE (NEGATIVE) Influenza Type B Ag NEGATIVE (NEGATIVE) RSV (PCR) NEGATIVE (Negative) SARS-CoV-2 (PCR) POSITIVE A (NEGATIVE) 04/07/22 04/07/22 04/07/22 Range/Units 12:48 12:48 12:48 WBC (4.0-10.5) x10^3/uL RBC (4.1-5.4) x10^6/uL Hgb (12.0-16.0) g/dL Hct (35-47) % MCV (78-100) fL MCH (26-32) pg MCHC (32-36) g/dL RDW (11.5-14.0) % Plt Count (150-450) x10^3/uL MPV (7.5-11.0) fL Gran % (36.0-66.0) % Immature Gran % (Auto) (0.00-0.4) % Nucleat RBC Rel Count (0.00-0.1) % Eos # (Auto) (0-0.5) x10^3/uL Immature Gran # (Auto) (0.00-0.03) x10^3u/L Absolute Lymphs (auto) (1.0-4.6) x10^3/uL Absolute Monos (auto) (0.0-1.3) x10^3/uL Absolute Nucleated RBC (0.00-0.01) x10^3u/L Lymphocytes % (24.0-44.0) % Monocytes % (0.0-12.0) % Eosinophils % (0.00-5.0) % Basophils % (0.0-0.4) % Absolute Granulocytes (1.4-6.9) x10^3/uL Basophils # (0-0.4) x10^3/uL D-Dimer 1.95 H* (0.0-0.50) mg/L Sodium 132 L (137-145) mmol/L Potassium 3.9 (3.5-5.1) mmol/L Chloride 96 L (98-107) mmol/L Carbon Dioxide 29 (22-30) mmol/L Anion Gap 11.2 (5-15) MEQ/L BUN 20 H (7-17) mg/dL Creatinine 1.05 H (0.52-1.04) mg/dL Estimated GFR 55.6 ML/MIN Glucose 94 (74-106) mg/dL Calcium 8.5 (8.4-10.2) mg/dL Total Bilirubin 0.20 (0.2-1.3) mg/dL AST 124 H (14-36) U/L ALT 48 H (0-35) U/L Alkaline Phosphatase 65 (38-126) U/L Troponin I < 0.012 (0.000-0.034) ng/mL NT-Pro-B Natriuret Pep 65.6 (0-900) pg/mL Serum Total Protein 7.4 (6.3-8.2) g/dL Albumin 4.0 (3.5-5.0) g/dL Urinalys Dipstick Clnc Urine Color (YELLOW) Urine Appearance (CLEAR) Urine pH (5-6) Ur Specific [place] (1.005-1.025) POC Urine Protein Conf (Negative) Urine Ketones (NEGATIVE) Urine Nitrite (NEGATIVE) Urine Bilirubin (NEGATIVE) Urine Urobilinogen (0-1) mg/dL Urine Leukocytes (NEGATIVE) Urine WBC (Auto) (0-5) /HPF Urine RBC (Auto) (0-2) /HPF U Hyaline Cast (Auto) (0-2) /LPF U Epithel Cells (Auto) (FEW) /HPF Urine Bacteria (Auto) (NEGATIVE) /HPF Urine RBC (0-5) Prince/ul Urine Mucus (Auto) (NEGATIVE) /HPF Ur Culture Indicated? Urine Glucose (NEGATIVE) mg/dL Influenza Type A Ag (NEGATIVE) Influenza Type B Ag (NEGATIVE) RSV (PCR) (Negative) SARS-CoV-2 (PCR) (NEGATIVE) 04/07/22 Range/Units 12:48 WBC 7.6 (4.0-10.5) x10^3/uL RBC 3.70 L (4.1-5.4) x10^6/uL Hgb 11.9 L (12.0-16.0) g/dL Hct 36.6 (35-47) % MCV 98.9 (78-100) fL MCH 32.2 H (26-32) pg MCHC 32.5 (32-36) g/dL RDW 14.0 (11.5-14.0) % Plt Count 177 (150-450) x10^3/uL MPV 10.0 (7.5-11.0) fL Gran % 63.6 (36.0-66.0) % Immature Gran % (Auto) 0.8 H (0.00-0.4) % Nucleat RBC Rel Count 0.0 (0.00-0.1) % Eos # (Auto) 0.04 (0-0.5) x10^3/uL Immature Gran # (Auto) 0.06 H (0.00-0.03) x10^3u/L Absolute Lymphs (auto) 1.56 (1.0-4.6) x10^3/uL Absolute Monos (auto) 1.08 (0.0-1.3) x10^3/uL Absolute Nucleated RBC 0.00 (0.00-0.01) x10^3u/L Lymphocytes % 20.5 L (24.0-44.0) % Monocytes % 14.2 H (0.0-12.0) % Eosinophils % 0.5 (0.00-5.0) % Basophils % 0.4 (0.0-0.4) % Absolute Granulocytes 4.85 (1.4-6.9) x10^3/uL Basophils # 0.03 (0-0.4) x10^3/uL D-Dimer (0.0-0.50) mg/L Sodium (137-145) mmol/L Potassium (3.5-5.1) mmol/L Chloride (98-107) mmol/L Carbon Dioxide (22-30) mmol/L Anion Gap (5-15) MEQ/L BUN (7-17) mg/dL Creatinine (0.52-1.04) mg/dL Estimated GFR ML/MIN Glucose (74-106) mg/dL Calcium (8.4-10.2) mg/dL Total Bilirubin (0.2-1.3) mg/dL AST (14-36) U/L ALT (0-35) U/L Alkaline Phosphatase (38-126) U/L Troponin I (0.000-0.034) ng/mL NT-Pro-B Natriuret Pep (0-900) pg/mL Serum Total Protein (6.3-8.2) g/dL Albumin (3.5-5.0) g/dL Urinalys Dipstick Clnc Urine Color (YELLOW) Urine Appearance (CLEAR) Urine pH (5-6) Ur Specific [place] (1.005-1.025) POC Urine Protein Conf (Negative) Urine Ketones (NEGATIVE) Urine Nitrite (NEGATIVE) Urine Bilirubin (NEGATIVE) Urine Urobilinogen (0-1) mg/dL Urine Leukocytes (NEGATIVE) Urine WBC (Auto) (0-5) /HPF Urine RBC (Auto) (0-2) /HPF U Hyaline Cast (Auto) (0-2) /LPF U Epithel Cells (Auto) (FEW) /HPF Urine Bacteria (Auto) (NEGATIVE) /HPF Urine RBC (0-5) Prince/ul Urine Mucus (Auto) (NEGATIVE) /HPF Ur Culture Indicated? Urine Glucose (NEGATIVE) mg/dL Influenza Type A Ag (NEGATIVE) Influenza Type B Ag (NEGATIVE) RSV (PCR) (Negative) SARS-CoV-2 (PCR) (NEGATIVE) - Progress Progress: improved Progress Note: Sick 6-year-old female history of COVID lives alone presents to our ED status post syncopal episode. D-dimer positive. However due to inability to obtain IV access we were unable to perform a CTA chest. Patient received a dose of Lovenox in our ED. However patient will require a VQ scan tomorrow. Anticoag ulant should be continued until she is cleared from a PE. She would likely require a syncopal work-up. CT head negative. Chest x-ray negative. Patient has a history of chronic back pain. Patient now complains of worsening back pain. CT lumbar spine negative for acute pathology. Patient requesting admission as she feels too weak to go home. She lives alone. COVID positivity confirmed in our ED. Case discussed with Dr. Boykin accepts admission to observation. Plan of care discussed with patient. She agrees to admission at [facility] for further evaluation and treatment. Portions of this note were created with voice recognition technology. There may be grammatical, spelling, punctuation or sound alike errors 04/07/22 18:17 04/07/22 18:19 Discussed with : Tamara Will see patient in: hospital (observation) Counseled pt/family regarding: lab results, diagnosis, need for follow-up, rad results - Departure Departure Disposition: Observation Clinical Impression: COVID-19, Syncope and collapse, Hyponatremia Condition: Stable Critical Care Time: No Referrals: DEE BEAR [Primary Care Provider] - Follow up/PCP as directed
[2022-04-07 13:32] LABS: ANION GAP 11.2 MEQ/L (5-15); BILIRUBIN,TOTAL 0.2 mg/dL (0.2-1.3); Calcium 8.5 mg/dL (8.4-10.2); Creatinine 1 1.05 mg/dL (0.52-1.04); EST GLOMERULAR FILTRATION RATE 55.6 ML/MIN; NT PRO BNP 65.6 pg/mL (0-900); Potassium 3.9 mmol/L (3.5-5.1); Total Protein 7.4 g/dL (6.3-8.2)
[2022-04-07 13:46] LABS: INFLUENZA A NEGATIVE (NEGATIVE); INFLUENZA B NEGATIVE (NEGATIVE); RESPIRATORY SYNCTIAL VIRUS NEGATIVE (Negative)
--- NOTE | 2022-04-07 14:02 | XRAY ---
Indication: Headache. Status post fall with head injury. Multiple contiguous axial images obtained through the head without contrast. Comparison: November 09, 2021 Normal appearing brain parenchyma and ventricles. Bony calvarium intact again with incidental hyperostosis frontalis interna. Visualized paranasal sinuses and mastoid air cells are clear. Impression: Continued normal CT head without contrast exam.
[2022-04-07 14:03] LABS: SARS-CoV-2 Xpert Express POSITIVE (NEGATIVE)
--- NOTE | 2022-04-07 14:08 | XRAY ---
Indication: Lumbar pain. Status post fall with head injury. Multiple contiguous axial images obtained through the lumbar spine. Sagittal and coronal reformatted images obtained. Comparison: March 16, 2021 Again intact bilateral L5-S1 fusion hardware produces extreme beam artifact limiting mid L4 to mid S1 levels. Grossly stable L2-L4 annular disc bulge with new minimal degenerative vacuum disc phenomena. No acute fracture, large disc herniation, or spinal canal stenosis. Facets are symmetric again with L4-L5 degenerative facet hypertrophy. Stable small left innominate bone island adjacent to SI joint. Sagittal and coronal reformatted images demonstrates stable lumbar alignment with L4-L5 disc space narrowing. No acute compression fracture or subluxation. Visualized noncontrasted soft tissues again demonstrate minimal aortobiiliac calcifications. Impression: Again extensive beam artifact from L5-S1 fusion hardware limits exam. Grossly stable L2-L4 degenerative disc disease, L4-L5 degenerative facet hypertrophy, and small left innominate bone island. No new/acute findings.
--- NOTE | 2022-04-07 14:09 | XRAY ---
Indication: Syncope. Status post fall. Comparison: May 02, 2020 Portable chest again demonstrates normal heart and lungs. Bony thorax intact again with mild osteopenia, degenerative changes, right shoulder arthroplasty, distal right clavicle resection, and epidural stimulator leads. Impression: Again nonacute chest with chronic bony features.
[2022-04-07] MEDS ORDERED: Xylocaine-Mpf 2% 5 Ml Vial ONE (15:22)
[2022-04-07] MEDS ORDERED: ENOXAPARIN SODIUM SQ ONE ×2 (18:15→18:28)
[2022-04-07] MEDS ORDERED: TYLENOL EXTRA STRENGTH 500 MG PO STA (19:01)
[2022-04-07] MEDS ORDERED: TYLENOL EXTRA STRENGTH 500 MG ONE (19:10)
[2022-04-07] MEDS ORDERED: Zofran 4 MG/2 ML VIAL IV PRN (20:47)
[2022-04-07] MEDS ORDERED: Sodium Chloride 0.9% 1000 ML 1,000 ML IV SCH (20:47)
[2022-04-07] MEDS ORDERED: TYLENOL 325 MG PO PRN (20:47)
[2022-04-07] MEDS ORDERED: LIORESAL 10 MG PO ONE (22:00)
[2022-04-07] MEDS ORDERED: Neurontin PO ONE (22:00)
[2022-04-07] MEDS ORDERED: NORTRIPTYLINE HCL PO ONE (22:00)
[2022-04-07] MEDS ORDERED: Zestril 10 MG PO ONE (22:00)
[2022-04-07] MEDS ORDERED: HYDROCODONE-ACETAMIN 10-325 MG PO ONE (22:00)
[2022-04-07] MEDS ORDERED: BENADRYL 25 MG CAPSULE PO ONE (22:00)
--- NOTE | 2022-04-07 22:36 | PCM.HP ---
History of Present Illness - Chief Complaint Chief Complaint: COVID, FAll and left hip pain History of Present Illness: is a 66 year old female who presented to the ER for evaluation earlier today, she relays a history of body aches and feeling poorly, tested positive for covid at home yesterday, this morning she believes she passed out, states she fell and woke up on the floor and had severe pain in her low back/left hip region. she has some mild cough, no shortness of breath or fever. - Review of Systems Constitutional: Weakness Respiratory: Cough Cardiac: No Chest Pain, No Edema, No Syncope Abdominal/Gastrointestinal: No Abdominal Pain, No Nausea, No Vomiting, No Diarrhea Musculoskeletal: Back Pain, Fall, Injury Skin: No Rash Medications & Allergies Home Medications: Home Medication List Dicyclomine HCl 20 mg [Bentyl 20 mg] 20 mg PO TID 06/08/16 [History Co nfirmed 04/07/22] Gabapentin 800 mg PO Q6H 06/08/16 [History Confirmed 04/07/22] Omeprazole 20 MG [Prilosec 20 mg] 20 mg PO DAILY 06/08/16 [History Confirmed 04/07/22] Clopidogrel Bisulfate [PLAVIX Tablet] 75 mg PO DAILY 03/16/21 [History Confirmed 04/07/22] Diphenhydramine HCl [Benadryl Allergy] 50 mg PO HS 03/16/21 [History Confirmed 04/07/22] Hydrocodone/Acetaminophen [Hydrocodone-Acetamin 10-325 mg] 1 ea PO Q6H 03/16/21 [History Confirmed 04/07/22] Lisinopril 10 mg [Zestril 10 MG] 10 mg PO DAILY 03/16/21 [History Confirmed 04/07/22] Nortriptyline HCl 75 mg PO HS 03/16/21 [History Confirmed 04/07/22] Topiramate 50 mg PO BID 03/16/21 [History Confirmed 04/07/22] estradioL [Estradiol] 2 mg PO DAILY 03/16/21 [History Confirmed 04/07/22] Baclofen 5 mg PO UD PRN 03/17/21 [History Confirmed 04/07/22] Baclofen 10 mg [Lioresal 10 mg] 10 mg PO HS 03/17/21 [History Confirmed 04/07/22] Metoprolol Succinate 50 mg [Toprol Xl 50 MG] 50 mg PO DAILY 03/21/21 [History Confirmed 04/07/22] Loperamide HCl 2 mg [Imodium 2 mg] 2 mg PO Q8HPRN PRN #60 cap 03/23/21 [Rx Confirmed 04/07/22] Allergies/Adverse Reactions: Allergies Allergy/AdvReac Type Severity Reaction Status Date / Time ciprofloxacin [From Cipro] Allergy Severe Hives Verified 04/07/22 12:30 morphine AdvReac Severe passes out Verified 04/07/22 12:30 tramadol [From Ultram] AdvReac Intermediate Diarrhea Verified 04/07/22 12:30 - Past Medical History Past Medical History: Yes Neurological History: Migraines, Peripheral Neuropathy ENT History: No Pertinent History Cardiac History: Hypertension Respiratory History: Other Endocrine Medical History: No Pertinent History Musculoskelatal History: Degenerative Disk Disease GI Medical History: No Pertinent History History: No Pertinent History Pyscho-Social History: No Pertinent History Reproductive Disorders: No Pertinent History Comment: HX OF COVID - NO RESIDUAL. PATIENT IS VACCINATED AGAINST COVID. HAS HAD 5 SURGERIES RELATED TO PLACEMENT OF NEURO STIMULATOR FOR BACK PAIN BUT PATIENT REPORTS FAILED. STIMULATOR IN PLACE BUT DOES NOT TURN ON AND BATTERY HAS . STATES HAD 2-3 SURGERIES PRIOR TO STIMULATOR PLACEMENT. covid 2021. chronic back pain. OTHER SX HX: RIGHT TSR 2019 AND RIGHT TKR 2020 - Past Surgical History Past Surgical History: Yes Neuro Surgical History: Other Cardiac History: Cardiac Catheterization Respiratory Surgery: No Pertinent History GI Surgical History: Appendectomy, Cholecystectomy Genitourinary Surgical Hx: No Pertinent History Musculskeletal Surgical Hx: Other Female Surgical History: Hysterectomy Other Surgical History: pt has a neuro stimulator, bilateral carpal tunnel.,torn/repair right shoulder cuff,states total of five back surgeries(cervical fusion 30 yr ago,lumbar fusion,laminectomy) - Social History Smoking Status: Never smoker Exposure to second hand smoke: No Alcohol: None Drug Use: none Significant Family History: no pertinent family hx - Physical Exam Vital Signs: Vital Signs - 24 hr Temp Pulse Resp BP BP Pulse Ox 04/07/22 21:30 73 20 98 04/07/22 21:21 98.3 F 78 16 132/67 95 12/21/22 20:00 77 127/64 98 04/07/22 19:00 80 124/73 98 04/07/22 18:22 93 L 04/07/22 18:02 92 H 22 97 04/07/22 17:44 98.1 F 92 H 22 124/85 97 04/07/22 15:00 82 96 04/07/22 14:00 81 16 92 L 04/07/22 13:23 82 22 118/65 97 04/07/22 12:56 93 L 04/07/22 12:27 97.3 F 86 18 122/68 97 General Appearance: no apparent distress, other (describes her pain as 9.5/10 in her hip but she is laughing and smiling during history) Respiratory Exam: normal breath sounds Cardiovascular Exam: regular rate/rhythm, normal heart sounds, normal peripheral pulses Gastrointestinal/Abdomen Exam: soft, normal bowel sounds, No tenderness, No mass Extremity Exam: other (no shortening or rotation to left lower extremity, latera l pain with external rotation of hip) Results - Labs Lab/Micro Results: Lab Results-Last 24 Hours 04/07/22 04/07/22 04/07/22 Range/Units 12:48 12:48 12:48 WBC 7.6 (4.0-10.5) x10^3/uL RBC 3.70 L (4.1-5.4) x10^6/uL Hgb 11.9 L (12.0-16.0) g/dL Hct 36.6 (35-47) % MCV 98.9 (78-100) fL MCH 32.2 H (26-32) pg MCHC 32.5 (32-36) g/dL RDW 14.0 (11.5-14.0) % Plt Count 177 (150-450) x10^3/uL MPV 10.0 (7.5-11.0) fL Gran % 63.6 (36.0-66.0) % Immature Gran % (Auto) 0.8 H (0.00-0.4) % Nucleat RBC Rel Count 0.0 (0.00-0.1) % Eos # (Auto) 0.04 (0-0.5) x10^3/uL Immature Gran # (Auto) 0.06 H (0.00-0.03) x10^3u/L Absolute Lymphs (auto) 1.56 (1.0-4.6) x10^3/uL Absolute Monos (auto) 1.08 (0.0-1.3) x10^3/uL Absolute Nucleated RBC 0.00 (0.00-0.01) x10^3u/L Lymphocytes % 20.5 L (24.0-44.0) % Monocytes % 14.2 H (0.0-12.0) % Eosinophils % 0.5 (0.00-5.0) % Basophils % 0.4 (0.0-0.4) % Absolute Granulocytes 4.85 (1.4-6.9) x10^3/uL Basophils # 0.03 (0-0.4) x10^3/uL D-Dimer 1.95 H* (0.0-0.50) mg/L Sodium 132 L (137-145) mmol/L Potassium 3.9 (3.5-5.1) mmol/L Chloride 96 L (98-107) mmol/L Carbon Dioxide 29 (22-30) mmol/L Anion Gap 11.2 (5-15) MEQ/L BUN 20 H (7-17) mg/dL Creatinine 1.05 H (0.52-1.04) mg/dL Estimated GFR 55.6 ML/MIN Glucose 94 (74-106) mg/dL Calcium 8.5 (8.4-10.2) mg/dL Total Bilirubin 0.20 (0.2-1.3) mg/dL AST 124 H (14-36) U/L ALT 48 H (0-35) U/L Alkaline Phosphatase 65 (38-126) U/L Troponin I (0.000-0.034) ng/mL NT-Pro-B Natriuret Pep 65.6 (0-900) pg/mL Serum Total Protein 7.4 (6.3-8.2) g/dL Albumin 4.0 (3.5-5.0) g/dL Urinalys Dipstick Clnc Urine Color (YELLOW) Urine Appearance (CLEAR) Urine pH (5-6) Ur Specific Jamison (1.005-1.025) POC Urine Protein Conf (Negative) Urine Ketones (NEGATIVE) Urine Nitrite (NEGATIVE) Urine Bilirubin (NEGATIVE) Urine Urobilinogen (0-1) mg/dL Urine Leukocytes (NEGATIVE) Urine WBC (Auto) (0-5) /HPF Urine RBC (Auto) (0-2) /HPF U Hyaline Cast (Auto) (0-2) /LPF U Epithel Cells (Auto) (FEW) /HPF Urine Bacteria (Auto) (NEGATIVE) /HPF Urine RBC (0-5) Prince/ul Urine Mucus (Auto) (NEGATIVE) /HPF Ur Culture Indicated? Urine Glucose (NEGATIVE) mg/dL Influenza Type A Ag (NEGATIVE) Influenza Type B Ag (NEGATIVE) RSV (PCR) (Negative) SARS-CoV-2 (PCR) (NEGATIVE) 04/07/22 04/07/22 04/07/22 Range/Units 12:48 12:48 12:52 WBC (4.0-10.5) x10^3/uL RBC (4.1-5.4) x10^6/uL Hgb (12.0-16.0) g/dL Hct (35-47) % MCV (78-100) fL MCH (26-32) pg MCHC (32-36) g/dL RDW (11.5-14.0) % Plt Count (150-450) x10^3/uL MPV (7.5-11.0) fL Gran % (36.0-66.0) % Immature Gran % (Auto) (0.00-0.4) % Nucleat RBC Rel Count (0.00-0.1) % Eos # (Auto) (0-0.5) x10^3/uL Immature Gran # (Auto) (0.00-0.03) x10^3u/L Absolute Lymphs (auto) (1.0-4.6) x10^3/uL Absolute Monos (auto) (0.0-1.3) x10^3/uL Absolute Nucleated RBC (0.00-0.01) x10^3u/L Lymphocytes % (24.0-44.0) % Monocytes % (0.0-12.0) % Eosinophils % (0.00-5.0) % Basophils % (0.0-0.4) % Absolute Granulocytes (1.4-6.9) x10^3/uL Basophils # (0-0.4) x10^3/uL D-Dimer (0.0-0.50) mg/L Sodium (137-145) mmol/L Potassium (3.5-5.1) mmol/L Chloride (98-107) mmol/L Carbon Dioxide (22-30) mmol/L Anion Gap (5-15) MEQ/L BUN (7-17) mg/dL Creatinine (0.52-1.04) mg/dL Estimated GFR ML/MIN Glucose (74-106) mg/dL Calcium (8.4-10.2) mg/dL Total Bilirubin (0.2-1.3) mg/dL AST (14-36) U/L ALT (0-35) U/L Alkaline Phosphatase (38-126) U/L Troponin I < 0.012 (0.000-0.034) ng/mL NT-Pro-B Natriuret Pep (0-900) pg/mL Serum Total Protein (6.3-8.2) g/dL Albumin (3.5-5.0) g/dL Urinalys Dipstick Clnc MAIN LAB Urine Color YELLOW (YELLOW) Urine Appearance CLEAR (CLEAR) Urine pH 5.0 (5-6) Ur Specific Jamison 1.020 (1.005-1.025) POC Urine Protein Conf NEGATIVE (Negative) Urine Ketones NEGATIVE (NEGATIVE) Urine Nitrite NEGATIVE (NEGATIVE) Urine Bilirubin NEGATIVE (NEGATIVE) Urine Urobilinogen 0.2 (0-1) mg/dL Urine Leukocytes NEGATIVE (NEGATIVE) Urine WBC (Auto) 3-5 A (0-5) /HPF Urine RBC (Auto) NONE (0-2) /HPF U Hyaline Cast (Auto) 6-10 A (0-2) /LPF U Epithel Cells (Auto) RARE (FEW) /HPF Urine Bacteria (Auto) NONE (NEGATIVE) /HPF Urine RBC NEGATIVE (0-5) Prince/ul Urine Mucus (Auto) SLIGHT A (NEGATIVE) /HPF Ur Culture Indicated? NO Urine Glucose NEGATIVE (NEGATIVE) mg/dL Influenza Type A Ag NEGATIVE (NEGATIVE) Influenza Type B Ag NEGATIVE (NEGATIVE) RSV (PCR) NEGATIVE (Negative) SARS-CoV-2 (PCR) POSITIVE A (NEGATIVE) 04/07/22 04/07/22 Range/Units 16:48 21:25 WBC (4.0-10.5) x10^3/uL RBC (4.1-5.4) x10^6/uL Hgb (12.0-16.0) g/dL Hct (35-47) % MCV (78-100) fL MCH (26-32) pg MCHC (32-36) g/dL RDW (11.5-14.0) % Plt Count (150-450) x10^3/uL MPV (7.5-11.0) fL Gran % (36.0-66.0) % Immature Gran % (Auto) (0.00-0.4) % Nucleat RBC Rel Count (0.00-0.1) % Eos # (Auto) (0-0.5) x10^3/uL Immature Gran # (Auto) (0.00-0.03) x10^3u/L Absolute Lymphs (auto) (1.0-4.6) x10^3/uL Absolute Monos (auto) (0.0-1.3) x10^3/uL Absolute Nucleated RBC (0.00-0.01) x10^3u/L Lymphocytes % (24.0-44.0) % Monocytes % (0.0-12.0) % Eosinophils % (0.00-5.0) % Basophils % (0.0-0.4) % Absolute Granulocytes (1.4-6.9) x10^3/uL Basophils # (0-0.4) x10^3/uL D-Dimer (0.0-0.50) mg/L Sodium (137-145) mmol/L Potassium (3.5-5.1) mmol/L Chloride (98-107) mmol/L Carbon Dioxide (22-30) mmol/L Anion Gap (5-15) MEQ/L BUN (7-17) mg/dL Creatinine (0.52-1.04) mg/dL Estimated GFR ML/MIN Glucose (74-106) mg/dL Calcium (8.4-10.2) mg/dL Total Bilirubin (0.2-1.3) mg/dL AST (14-36) U/L ALT (0-35) U/L Alkaline Phosphatase (38-126) U/L Troponin I < 0.012 < 0.012 (0.000-0.034) ng/mL NT-Pro-B Natriuret Pep (0-900) pg/mL Serum Total Protein (6.3-8.2) g/dL Albumin (3.5-5.0) g/dL Urinalys Dipstick Clnc Urine Color (YELLOW) Urine Appearance (CLEAR) Urine pH (5-6) Ur Specific Jamison (1.005-1.025) POC Urine Protein Conf (Negative) Urine Ketones (NEGATIVE) Urine Nitrite (NEGATIVE) Urine Bilirubin (NEGATIVE) Urine Urobilinogen (0-1) mg/dL Urine Leukocytes (NEGATIVE) Urine WBC (Auto) (0-5) /HPF Urine RBC (Auto) (0-2) /HPF U Hyaline Cast (Auto) (0-2) /LPF U Epithel Cells (Auto) (FEW) /HPF Urine Bacteria (Auto) (NEGATIVE) /HPF Urine RBC (0-5) Prince/ul Urine Mucus (Auto) (NEGATIVE) /HPF Ur Culture Indicated? Urine Glucose (NEGATIVE) mg/dL Influenza Type A Ag (NEGATIVE) Influenza Type B Ag (NEGATIVE) RSV (PCR) (Negative) SARS-CoV-2 (PCR) (NEGATIVE) - Radiology Impressions Radiology Exams & Impressions: Radiology Procedures Category Date Time Status CHEST 1 VIEW (PORTABLE) Stat Exams 04/07/22 12:44 Completed CHEST WITH CONTRAST [CT] Stat Exams 04/07/22 13:48 Taken HEAD WITHOUT CONTRAST [CT] Stat Exams 04/07/22 12:45 Completed HIP UNI (2V) INCL PEL IF DONE Stat Exams 04/07/22 20:57 Taken LUMBAR SPINE W/O [CT] Stat Exams 04/07/22 12:45 Completed - Other Procedures and Tests Respiratory Therapy 04/07/22 21:59 Respiratory Therapy Assessment DAILY Assessment/Plan (1) COVID-19 Current Visit: Yes Status: Acute Assessment & Plan: very minimal symptoms currently, lungs are clear and vitals are good Code(s): U07.1 - COVID-19 (2) Syncope and collapse Current Visit: Yes Status: Acute Assessment & Plan: plan to r/o MO, check echo tomorrow Code(s): R55 - SYNCOPE AND COLLAPSE (3) Left hip pain Current Visit: Yes Status: Acute Assessment & Plan: xray ordered of left hip at time of admission and seeing her on the floor. has chronic back pain, has an inactive pain stimulator and takes norco chronically and under the care of Dr Sullivan Code(s): M25.552 - PAIN IN LEFT HIP
[2022-04-07] MEDS ORDERED: HYDROCODONE-ACETAMIN 10-325 MG PO PRN (22:38)
[2022-04-08 05:36] LABS: Absolute Neutrophil Ct (ANC) 3.11 x10^3/uL (1.4-6.9); Basophil (Absolute #) 0.03 x10^3/uL (0-0.4); Eosinophil % 2.7 % (0.00-5.0); Eosinophil (Absolute #) 0.16 x10^3/uL (0-0.5); Hematocrit 37.1 % (35-47); Hemoglobin 11.8 g/dL (12.0-16.0); Lymphocyte (Absolute #) 1.76 x10^3/uL (1.0-4.6); Lymphocytes % 30.1 % (24.0-44.0); Mean Cell Volume 102.5 fL (78-100); Mean Corpuscular Hemoglobin 32.6 pg (26-32); Mean Corpuscular Hgb Concent. 31.8 g/dL (32-36); Mean Platelet Volume 10.4 fL (7.5-11.0); Monocyte (Absolute #) 0.75 x10^3/uL (0.0-1.3); Monocytes % 12.8 % (0.0-12.0); Neutrophil % 53.4 % (36.0-66.0); Platelet Count 187 x10^3/uL (150-450); Red Blood Count 3.62 x10^6/uL (4.1-5.4); Red Cell Distribution Width 14.3 % (11.5-14.0); White Blood Count 5.8 x10^3/uL (4.0-10.5)
[2022-04-08 05:59] LABS: ALBUMIN 3.6 g/dL (3.5-5.0); ALKALINE PHOSPHATASE 61 U/L (38-126); ANION GAP 8.8 MEQ/L (5-15); BLOOD UREA NITROGEN 14 mg/dL (7-17); CHLORIDE 97 mmol/L (98-107); Calcium 7.6 mg/dL (8.4-10.2); Carbon Dioxide 29 mmol/L (22-30); Creatinine 1 0.65 mg/dL (0.52-1.04); EST GLOMERULAR FILTRATION RATE > 60.0 ML/MIN; Glucose 98 mg/dL (74-106); Potassium 3.7 mmol/L (3.5-5.1); SGOT/AST 96 U/L (14-36); SGPT/ALT 43 U/L (0-35); SODIUM 132 mmol/L (137-145); Total Protein 6.9 g/dL (6.3-8.2)
--- NOTE | 2022-04-08 08:34 | XRAY ---
Indication: Syncope. Status post fall. Elevated d-dimer. Multiple contiguous axial images obtained through the chest using 80 cc Isovue 370 contrast and PE protocol. Comparison: None There is no contrast in the pulmonary arteries, nondiagnostic for evaluation for pulmonary embolus. Heart not enlarged. Aorta is minimally arteriosclerotic without aneurysm. Tiny right hilar calcified node. No pathologic mediastinal lymphadenopathy. Small hiatal hernia. Lungs demonstrate 5 mm posterior left lower lobe noncalcified nodule and minimal bilateral dependent atelectasis. No infiltrate, effusion, or pneumothorax. Bony thorax demonstrates mild degenerative changes throughout the spine, right shoulder arthroplasty, and epidural stimulator leads terminating T8 level. Limited upper abdomen demonstrates mild diffuse fatty liver and little bilateral renal contrast excretion. Impression: 1. Nondiagnostic for pulmonary embolus evaluation due to no contrast in pulmonary arteries. No acute cardiopulmonary abnormalities. 2. 5 mm indeterminate left lower lobe noncalcified nodule. Finding possibly granulomatous in this demographic and also evidence for old granulomatous disease elsewhere. Consider follow-up per Fleischner guidelines. 3. Chronic findings including small hiatal hernia, fatty liver, and chronic bony findings.
--- NOTE | 2022-04-08 08:42 | XRAY ---
Indication: Pain following fall. Comparison: June 30, 2021 2 view left hip again demonstrates mild osteopenia, left iliac crest bony exostosis, and partially visualized lower lumbar fusion hardware. No new/acute bony, articular, or soft tissue abnormalities. Comment: Preliminary interpretation made by [facility]. No critical discrepancy.
--- NOTE | 2022-04-08 09:27 | PCM.NOTE ---
Date and Time: 04/08/22924 Subjective Assessment: patient feeling some better, able to move around in the bed. her hip and back pain is still significant Objective Exam General Appearance: no apparent distress, obese Respiratory Exam: normal breath sounds, lungs clear, No respiratory distress Cardiovascular Exam: regular rate/rhythm, normal heart sounds Gastrointestinal/Abdomen Exam: soft, No tenderness, No mass Extremity Exam: normal inspection, normal range of motion OBJECTIVE DATA Vital Signs: Vital Signs - 24 hr Temp Pulse Resp BP BP Pulse Ox 04/08/22 07:38 98.6 F 86 16 130/62 95 04/08/22 04:50 20 04/08/22 04:00 98.0 F 83 20 132/71 96 04/08/22 03:00 20 04/08/22 00:48 20 04/07/22 23:50 98.3 F 88 20 141/63 96 04/07/22 23:00 20 04/07/22 21:30 73 20 98 04/07/22 21:21 98.3 F 78 16 132/67 95 04/07/22 21:00 20 04/07/22 20:00 77 127/64 98 04/07/22 19:00 80 124/73 98 04/07/22 18:22 93 L 04/07/22 18:02 92 H 22 97 04/07/22 17:44 98.1 F 92 H 22 124/85 97 04/07/22 15:00 82 96 04/07/22 14:00 81 16 92 L 04/07/22 13:23 82 22 118/65 97 04/07/22 12:56 93 L 04/07/22 12:27 97.3 F 86 18 122/68 97 Pain Assessment - Last Documented Pain Intensity 0 Pain Scale Used 0-10 Pain Scale Intake and Output: Intake & Output 04/05/22 04/06/22 04/07/22 04/08/22 11:59 11:59 11:59 11:59 Intake Total 1640 Output Total 800 Balance 840 Weight 89.9 kg Lab Results: Lab Results-Last 24 Hours 04/07/22 04/07/22 04/07/22 Range/Units 12:48 12:48 12:48 WBC 7.6 (4.0-10.5) x10^3/uL RBC 3.70 L (4.1-5.4) x10^6/uL Hgb 11.9 L (12.0-16.0) g/dL Hct 36.6 (35-47) % MCV 98.9 (78-100) fL MCH 32.2 H (26-32) pg MCHC 32.5 (32-36) g/dL RDW 14.0 (11.5-14.0) % Plt Count 177 (150-450) x10^3/uL MPV 10.0 (7.5-11.0) fL Gran % 63.6 (36.0-66.0) % Immature Gran % (Auto) 0.8 H (0.00-0.4) % Nucleat RBC Rel Count 0.0 (0.00-0.1) % Eos # (Auto) 0.04 (0-0.5) x10^3/uL Immature Gran # (Auto) 0.06 H (0.00-0.03) x10^3u/L Absolute Lymphs (auto) 1.56 (1.0-4.6) x10^3/uL Absolute Monos (auto) 1.08 (0.0-1.3) x10^3/uL Absolute Nucleated RBC 0.00 (0.00-0.01) x10^3u/L Lymphocytes % 20.5 L (24.0-44.0) % Monocytes % 14.2 H (0.0-12.0) % Eosinophils % 0.5 (0.00-5.0) % Basophils % 0.4 (0.0-0.4) % Absolute Granulocytes 4.85 (1.4-6.9) x10^3/uL Basophils # 0.03 (0-0.4) x10^3/uL D-Dimer 1.95 H* (0.0-0.50) mg/L Sodium 132 L (137-145) mmol/L Potassium 3.9 (3.5-5.1) mmol/L Chloride 96 L (98-107) mmol/L Carbon Dioxide 29 (22-30) mmol/L Anion Gap 11.2 (5-15) MEQ/L BUN 20 H (7-17) mg/dL Creatinine 1.05 H (0.52-1.04) mg/dL Estimated GFR 55.6 ML/MIN Glucose 94 (74-106) mg/dL Calcium 8.5 (8.4-10.2) mg/dL Total Bilirubin 0.20 (0.2-1.3) mg/dL AST 124 H (14-36) U/L ALT 48 H (0-35) U/L Alkaline Phosphatase 65 (38-126) U/L Troponin I (0.000-0.034) ng/mL NT-Pro-B Natriuret Pep 65.6 (0-900) pg/mL Serum Total Protein 7.4 (6.3-8.2) g/dL Albumin 4.0 (3.5-5.0) g/dL Urinalys Dipstick Clnc Urine Color (YELLOW) Urine Appearance (CLEAR) Urine pH (5-6) Ur Specific [place] (1.005-1.025) POC Urine Protein Conf (Negative) Urine Ketones (NEGATIVE) Urine Nitrite (NEGATIVE) Urine Bilirubin (NEGATIVE) Urine Urobilinogen (0-1) mg/dL Urine Leukocytes (NEGATIVE) Urine WBC (Auto) (0-5) /HPF Urine RBC (Auto) (0-2) /HPF U Hyaline Cast (Auto) (0-2) /LPF U Epithel Cells (Auto) (FEW) /HPF Urine Bacteria (Auto) (NEGATIVE) /HPF Urine RBC (0-5) Prince/ul Urine Mucus (Auto) (NEGATIVE) /HPF Ur Culture Indicated? Urine Glucose (NEGATIVE) mg/dL Influenza Type A Ag (NEGATIVE) Influenza Type B Ag (NEGATIVE) RSV (PCR) (Negative) SARS-CoV-2 (PCR) (NEGATIVE) 04/07/22 04/07/22 04/07/22 Range/Units 12:48 12:48 12:52 WBC (4.0-10.5) x10^3/uL RBC (4.1-5.4) x10^6/uL Hgb (12.0-16.0) g/dL Hct (35-47) % MCV (78-100) fL MCH (26-32) pg MCHC (32-36) g/dL RDW (11.5-14.0) % Plt Count (150-450) x10^3/uL MPV (7.5-11.0) fL Gran % (36.0-66.0) % Immature Gran % (Auto) (0.00-0.4) % Nucleat RBC Rel Count (0.00-0.1) % Eos # (Auto) (0-0.5) x10^3/uL Immature Gran # (Auto) (0.00-0.03) x10^3u/L Absolute Lymphs (auto) (1.0-4.6) x10^3/uL Absolute Monos (auto) (0.0-1.3) x10^3/uL Absolute Nucleated RBC (0.00-0.01) x10^3u/L Lymphocytes % (24.0-44.0) % Monocytes % (0.0-12.0) % Eosinophils % (0.00-5.0) % Basophils % (0.0-0.4) % Absolute Granulocytes (1.4-6.9) x10^3/uL Basophils # (0-0.4) x10^3/uL D-Dimer (0.0-0.50) mg/L Sodium (137-145) mmol/L Potassium (3.5-5.1) mmol/L Chloride (98-107) mmol/L Carbon Dioxide (22-30) mmol/L Anion Gap (5-15) MEQ/L BUN (7-17) mg/dL Creatinine (0.52-1.04) mg/dL Estimated GFR ML/MIN Glucose (74-106) mg/dL Calcium (8.4-10.2) mg/dL Total Bilirubin (0.2-1.3) mg/dL AST (14-36) U/L ALT (0-35) U/L Alkaline Phosphatase (38-126) U/L Troponin I < 0.012 (0.000-0.034) ng/mL NT-Pro-B Natriuret Pep (0-900) pg/mL Serum Total Protein (6.3-8.2) g/dL Albumin (3.5-5.0) g/dL Urinalys Dipstick Clnc MAIN LAB Urine Color YELLOW (YELLOW) Urine Appearance CLEAR (CLEAR) Urine pH 5.0 (5-6) Ur Specific [place] 1.020 (1.005-1.025) POC Urine Protein Conf NEGATIVE (Negative) Urine Ketones NEGATIVE (NEGATIVE) Urine Nitrite NEGATIVE (NEGATIVE) Urine Bilirubin NEGATIVE (NEGATIVE) Urine Urobilinogen 0.2 (0-1) mg/dL Urine Leukocytes NEGATIVE (NEGATIVE) Urine WBC (Auto) 3-5 A (0-5) /HPF Urine RBC (Auto) NONE (0-2) /HPF U Hyaline Cast (Auto) 6-10 A (0-2) /LPF U Epithel Cells (Auto) RARE (FEW) /HPF Urine Bacteria (Auto) NONE (NEGATIVE) /HPF Urine RBC NEGATIVE (0-5) Prince/ul Urine Mucus (Auto) SLIGHT A (NEGATIVE) /HPF Ur Culture Indicated? NO Urine Glucose NEGATIVE (NEGATIVE) mg/dL Influenza Type A Ag NEGATIVE (NEGATIVE) Influenza Type B Ag NEGATIVE (NEGATIVE) RSV (PCR) NEGATIVE (Negative) SARS-CoV-2 (PCR) POSITIVE A (NEGATIVE) 04/07/22 04/07/22 04/08/22 Range/Units 16:48 21:25 04:44 WBC 5.8 (4.0-10.5) x10^3/uL RBC 3.62 L (4.1-5.4) x10^6/uL Hgb 11.8 L (12.0-16.0) g/dL Hct 37.1 (35-47) % MCV 102.5 H (78-100) fL MCH 32.6 H (26-32) pg MCHC 31.8 L (32-36) g/dL RDW 14.3 H (11.5-14.0) % Plt Count 187 (150-450) x10^3/uL MPV 10.4 (7.5-11.0) fL Gran % 53.4 (36.0-66.0) % Immature Gran % (Auto) 0.5 H (0.00-0.4) % Nucleat RBC Rel Count 0.0 (0.00-0.1) % Eos # (Auto) 0.16 (0-0.5) x10^3/uL Immature Gran # (Auto) 0.03 (0.00-0.03) x10^3u/L Absolute Lymphs (auto) 1.76 (1.0-4.6) x10^3/uL Absolute Monos (auto) 0.75 (0.0-1.3) x10^3/uL Absolute Nucleated RBC 0.00 (0.00-0.01) x10^3u/L Lymphocytes % 30.1 (24.0-44.0) % Monocytes % 12.8 H (0.0-12.0) % Eosinophils % 2.7 (0.00-5.0) % Basophils % 0.5 (0.0-0.4) % Absolute Granulocytes 3.11 (1.4-6.9) x10^3/uL Basophils # 0.03 (0-0.4) x10^3/uL D-Dimer (0.0-0.50) mg/L Sodium (137-145) mmol/L Potassium (3.5-5.1) mmol/L Chloride (98-107) mmol/L Carbon Dioxide (22-30) mmol/L Anion Gap (5-15) MEQ/L BUN (7-17) mg/dL Creatinine (0.52-1.04) mg/dL Estimated GFR ML/MIN Glucose (74-106) mg/dL Calcium (8.4-10.2) mg/dL Total Bilirubin (0.2-1.3) mg/dL AST (14-36) U/L ALT (0-35) U/L Alkaline Phosphatase (38-126) U/L Troponin I < 0.012 < 0.012 (0.000-0.034) ng/mL NT-Pro-B Natriuret Pep (0-900) pg/mL Serum Total Protein (6.3-8.2) g/dL Albumin (3.5-5.0) g/dL Urinalys Dipstick Clnc Urine Color (YELLOW) Urine Appearance (CLEAR) Urine pH (5-6) Ur Specific [place] (1.005-1.025) POC Urine Protein Conf (Negative) Urine Ketones (NEGATIVE) Urine Nitrite (NEGATIVE) Urine Bilirubin (NEGATIVE) Urine Urobilinogen (0-1) mg/dL Urine Leukocytes (NEGATIVE) Urine WBC (Auto) (0-5) /HPF Urine RBC (Auto) (0-2) /HPF U Hyaline Cast (Auto) (0-2) /LPF U Epithel Cells (Auto) (FEW) /HPF Urine Bacteria (Auto) (NEGATIVE) /HPF Urine RBC (0-5) Prince/ul Urine Mucus (Auto) (NEGATIVE) /HPF Ur Culture Indicated? Urine Glucose (NEGATIVE) mg/dL Influenza Type A Ag (NEGATIVE) Influenza Type B Ag (NEGATIVE) RSV (PCR) (Negative) SARS-CoV-2 (PCR) (NEGATIVE) 04/08/22 Range/Units 04:44 WBC (4.0-10.5) x10^3/uL RBC (4.1-5.4) x10^6/uL Hgb (12.0-16.0) g/dL Hct (35-47) % MCV (78-100) fL MCH (26-32) pg MCHC (32-36) g/dL RDW (11.5-14.0) % Plt Count (150-450) x10^3/uL MPV (7.5-11.0) fL Gran % (36.0-66.0) % Immature Gran % (Auto) (0.00-0.4) % Nucleat RBC Rel Count (0.00-0.1) % Eos # (Auto) (0-0.5) x10^3/uL Immature Gran # (Auto) (0.00-0.03) x10^3u/L Absolute Lymphs (auto) (1.0-4.6) x10^3/uL Absolute Monos (auto) (0.0-1.3) x10^3/uL Absolute Nucleated RBC (0.00-0.01) x10^3u/L Lymphocytes % (24.0-44.0) % Monocytes % (0.0-12.0) % Eosinophils % (0.00-5.0) % Basophils % (0.0-0.4) % Absolute Granulocytes (1.4-6.9) x10^3/uL Basophils # (0-0.4) x10^3/uL D-Dimer (0.0-0.50) mg/L Sodium 132 L (137-145) mmol/L Potassium 3.7 (3.5-5.1) mmol/L Chloride 97 L (98-107) mmol/L Carbon Dioxide 29 (22-30) mmol/L Anion Gap 8.8 (5-15) MEQ/L BUN 14 (7-17) mg/dL Creatinine 0.65 (0.52-1.04) mg/dL Estimated GFR > 60.0 ML/MIN Glucose 98 (74-106) mg/dL Calcium 7.6 L (8.4-10.2) mg/dL Total Bilirubin 0.20 (0.2-1.3) mg/dL AST 96 H (14-36) U/L ALT 43 H (0-35) U/L Alkaline Phosphatase 61 (38-126) U/L Troponin I (0.000-0.034) ng/mL NT-Pro-B Natriuret Pep (0-900) pg/mL Serum Total Protein 6.9 (6.3-8.2) g/dL Albumin 3.6 (3.5-5.0) g/dL Urinalys Dipstick Clnc Urine Color (YELLOW) Urine Appearance (CLEAR) Urine pH (5-6) Ur Specific [place] (1.005-1.025) POC Urine Protein Conf (Negative) Urine Ketones (NEGATIVE) Urine Nitrite (NEGATIVE) Urine Bilirubin (NEGATIVE) Urine Urobilinogen (0-1) mg/dL Urine Leukocytes (NEGATIVE) Urine WBC (Auto) (0-5) /HPF Urine RBC (Auto) (0-2) /HPF U Hyaline Cast (Auto) (0-2) /LPF U Epithel Cells (Auto) (FEW) /HPF Urine Bacteria (Auto) (NEGATIVE) /HPF Urine RBC (0-5) Prince/ul Urine Mucus (Auto) (NEGATIVE) /HPF Ur Culture Indicated? Urine Glucose (NEGATIVE) mg/dL Influenza Type A Ag (NEGATIVE) Influenza Type B Ag (NEGATIVE) RSV (PCR) (Negative) SARS-CoV-2 (PCR) (NEGATIVE) Radiology Exams: Radiology Procedures Category Date Time Status CHEST 1 VIEW (PORTABLE) Stat Exams 04/07/22 12:44 Completed CHEST WITH CONTRAST [CT] Stat Exams 04/07/22 13:48 Completed ECHO W/2D AND DOPPLER [US] Routine Exams 04/08/22 22:39 Ordered HEAD WITHOUT CONTRAST [CT] Stat Exams 04/07/22 12:45 Completed HIP UNI (2V) INCL PEL IF DONE Stat Exams 04/07/22 20:57 Completed LUMBAR SPINE W/O [CT] Stat Exams 04/07/22 12:45 Completed Assessment/Plan (1) COVID-19 Current Visit: Yes Status: Acute Assessment & Plan: mild disease, respiratory status is good. syncope secondary to covid, echo pending. if able to ambulate and move around room could likely discharge later today Code(s): U07.1 - COVID-19 (2) Syncope and collapse Current Visit: Yes Status: Acute Code(s): R55 - SYNCOPE AND COLLAPSE (3) Left hip pain Current Visit: Yes Status: Acute Assessment & Plan: negative xrays Code(s): M25.552 - PAIN IN LEFT HIP
[2022-04-08] MEDS ORDERED: NON-FORMULARY ITEM (Omeprazole 20 Mg [Prilosec 20 Mg] 20 MG Capsule.Dr) PO SCH (10:00)
[2022-04-08] MEDS ORDERED: LIORESAL 10 MG PO SCH ×2 (10:00→22:00)
[2022-04-08] MEDS ORDERED: ENOXAPARIN SODIUM SQ SCH (10:00)
[2022-04-08] MEDS ORDERED: NON-FORMULARY ITEM (Gabapentin [Gabapentin] 800 MG Tablet) PO SCH (10:00)
[2022-04-08] MEDS ORDERED: PLAVIX Tablet PO SCH (10:00)
[2022-04-08] MEDS ORDERED: NON-FORMULARY ITEM (Baclofen [Baclofen] 5 MG Tablet) PO SCH (10:00)
[2022-04-08] MEDS ORDERED: Toprol Xl 50 MG PO SCH (10:00)
[2022-04-08] MEDS ORDERED: Klor Con PO SCH (10:00)
[2022-04-08] MEDS ORDERED: BENTYL 20 MG PO SCH (10:00)
[2022-04-08] MEDS ORDERED: MEDICATION INTERVENTION MC SCH (10:15)
[2022-04-08] MEDS: Zestril 10 MG PO SCH ×2 (10:34→11:33)
[2022-04-08] MEDS: Paxil 20 MG PO SCH ×2 (10:34→11:33)
[2022-04-08] MEDS: HYDROCODONE-ACETAMIN 10-325 MG PO SCH ×2 (10:36→12:18)
[2022-04-08] MEDS ORDERED: Neurontin PO SCH (12:00)
--- NOTE | 2022-04-08 13:39 | PCM.DS ---
Discharge Summary Date of Admission: 04/07/22 20:37 Admitting Physician: DAVID DOWD Primary Care Provider: DEE BEAR Allergies Allergies ciprofloxacin [From Cipro] Allergy (Severe, Verified 04/07/22 12:30) Hives morphine Adverse Reaction (Severe, Verified 04/07/22 12:30) passes out tramadol [From Ultram] Adverse Reaction (Intermediate, Verified 04/07/22 12:30) Diarrhea Hospital Summary - Hospital Course Hospital Course: patient admitted with pain in left hip and low back after a fall, possible syncope. DC ruled out, covid positive. PT evaluated and patient going home with a walker and safe to discharge. - Vitals & Intake/Output Vital Signs: Vital Signs Temperature 98.5 F 04/08/22 11:21 Pulse Rate 93 H 04/08/22 11:21 Respiratory Rate 18 04/08/22 12:00 Blood Pressure 143/68 04/08/22 11:21 O2 Sat by Pulse Oximetry 96 04/08/22 11:58 Intake & Output: Intake & Output 04/06/22 04/07/22 04/08/22 04/09/22 11:59 11:59 11:59 11:59 Intake Total 2120 Output Total 1550 Balance 570 Weight 89.9 kg - Lab Result Diagrams: 04/08/22 04:44 04/08/22 04:44 Lab Results-Last 24 Hrs: Lab Results-Last 24 Hours 04/07/22 04/07/22 04/07/22 Range/Units 12:48 12:48 12:48 WBC (4.0-10.5) x10^3/uL RBC (4.1-5.4) x10^6/uL Hgb (12.0-16.0) g/dL Hct (35-47) % MCV (78-100) fL MCH (26-32) pg MCHC (32-36) g/dL RDW (11.5-14.0) % Plt Count (150-450) x10^3/uL MPV (7.5-11.0) fL Gran % (36.0-66.0) % Immature Gran % (Auto) (0.00-0.4) % Nucleat RBC Rel Count (0.00-0.1) % Eos # (Auto) (0-0.5) x10^3/uL Immature Gran # (Auto) (0.00-0.03) x10^3u/L Absolute Lymphs (auto) (1.0-4.6) x10^3/uL Absolute Monos (auto) (0.0-1.3) x10^3/uL Absolute Nucleated RBC (0.00-0.01) x10^3u/L Lymphocytes % (24.0-44.0) % Monocytes % (0.0-12.0) % Eosinophils % (0.00-5.0) % Basophils % (0.0-0.4) % Absolute Granulocytes (1.4-6.9) x10^3/uL Basophils # (0-0.4) x10^3/uL D-Dimer 1.95 H* (0.0-0.50) mg/L Sodium (137-145) mmol/L Potassium (3.5-5.1) mmol/L Chloride (98-107) mmol/L Carbon Dioxide (22-30) mmol/L Anion Gap (5-15) MEQ/L BUN (7-17) mg/dL Creatinine (0.52-1.04) mg/dL Estimated GFR ML/MIN Glucose (74-106) mg/dL Calcium (8.4-10.2) mg/dL Total Bilirubin (0.2-1.3) mg/dL AST (14-36) U/L ALT (0-35) U/L Alkaline Phosphatase (38-126) U/L Troponin I < 0.012 (0.000-0.034) ng/mL Serum Total Protein (6.3-8.2) g/dL Albumin (3.5-5.0) g/dL Influenza Type A Ag NEGATIVE (NEGATIVE) Influenza Type B Ag NEGATIVE (NEGATIVE) RSV (PCR) NEGATIVE (Negative) SARS-CoV-2 (PCR) POSITIVE A (NEGATIVE) 04/07/22 04/07/22 04/08/22 Range/Units 16:48 21:25 04:44 WBC 5.8 (4.0-10.5) x10^3/uL RBC 3.62 L (4.1-5.4) x10^6/uL Hgb 11.8 L (12.0-16.0) g/dL Hct 37.1 (35-47) % MCV 102.5 H (78-100) fL MCH 32.6 H (26-32) pg MCHC 31.8 L (32-36) g/dL RDW 14.3 H (11.5-14.0) % Plt Count 187 (150-450) x10^3/uL MPV 10.4 (7.5-11.0) fL Gran % 53.4 (36.0-66.0) % Immature Gran % (Auto) 0.5 H (0.00-0.4) % Nucleat RBC Rel Count 0.0 (0.00-0.1) % Eos # (Auto) 0.16 (0-0.5) x10^3/uL Immature Gran # (Auto) 0.03 (0.00-0.03) x10^3u/L Absolute Lymphs (auto) 1.76 (1.0-4.6) x10^3/uL Absolute Monos (auto) 0.75 (0.0-1.3) x10^3/uL Absolute Nucleated RBC 0.00 (0.00-0.01) x10^3u/L Lymphocytes % 30.1 (24.0-44.0) % Monocytes % 12.8 H (0.0-12.0) % Eosinophils % 2.7 (0.00-5.0) % Basophils % 0.5 (0.0-0.4) % Absolute Granulocytes 3.11 (1.4-6.9) x10^3/uL Basophils # 0.03 (0-0.4) x10^3/uL D-Dimer (0.0-0.50) mg/L Sodium (137-145) mmol/L Potassium (3.5-5.1) mmol/L Chloride (98-107) mmol/L Carbon Dioxide (22-30) mmol/L Anion Gap (5-15) MEQ/L BUN (7-17) mg/dL Creatinine (0.52-1.04) mg/dL Estimated GFR ML/MIN Glucose (74-106) mg/dL Calcium (8.4-10.2) mg/dL Total Bilirubin (0.2-1.3) mg/dL AST (14-36) U/L ALT (0-35) U/L Alkaline Phosphatase (38-126) U/L Troponin I < 0.012 < 0.012 (0.000-0.034) ng/mL Serum Total Protein (6.3-8.2) g/dL Albumin (3.5-5.0) g/dL Influenza Type A Ag (NEGATIVE) Influenza Type B Ag (NEGATIVE) RSV (PCR) (Negative) SARS-CoV-2 (PCR) (NEGATIVE) 04/08/22 Range/Units 04:44 WBC (4.0-10.5) x10^3/uL RBC (4.1-5.4) x10^6/uL Hgb (12.0-16.0) g/dL Hct (35-47) % MCV (78-100) fL MCH (26-32) pg MCHC (32-36) g/dL RDW (11.5-14.0) % Plt Count (150-450) x10^3/uL MPV (7.5-11.0) fL Gran % (36.0-66.0) % Immature Gran % (Auto) (0.00-0.4) % Nucleat RBC Rel Count (0.00-0.1) % Eos # (Auto) (0-0.5) x10^3/uL Immature Gran # (Auto) (0.00-0.03) x10^3u/L Absolute Lymphs (auto) (1.0-4.6) x10^3/uL Absolute Monos (auto) (0.0-1.3) x10^3/uL Absolute Nucleated RBC (0.00-0.01) x10^3u/L Lymphocytes % (24.0-44.0) % Monocytes % (0.0-12.0) % Eosinophils % (0.00-5.0) % Basophils % (0.0-0.4) % Absolute Granulocytes (1.4-6.9) x10^3/uL Basophils # (0-0.4) x10^3/uL D-Dimer (0.0-0.50) mg/L Sodium 132 L (137-145) mmol/L Potassium 3.7 (3.5-5.1) mmol/L Chloride 97 L (98-107) mmol/L Carbon Dioxide 29 (22-30) mmol/L Anion Gap 8.8 (5-15) MEQ/L BUN 14 (7-17) mg/dL Creatinine 0.65 (0.52-1.04) mg/dL Estimated GFR > 60.0 ML/MIN Glucose 98 (74-106) mg/dL Calcium 7.6 L (8.4-10.2) mg/dL Total Bilirubin 0.20 (0.2-1.3) mg/dL AST 96 H (14-36) U/L ALT 43 H (0-35) U/L Alkaline Phosphatase 61 (38-126) U/L Troponin I (0.000-0.034) ng/mL Serum Total Protein 6.9 (6.3-8.2) g/dL Albumin 3.6 (3.5-5.0) g/dL Influenza Type A Ag (NEGATIVE) Influenza Type B Ag (NEGATIVE) RSV (PCR) (Negative) SARS-CoV-2 (PCR) (NEGATIVE) - Radiology Exams Ordered Rad Exams-Entire Visit: Radiology Procedures Category Date Time Status CHEST 1 VIEW (PORTABLE) Stat Exams 04/07/22 12:44 Completed CHEST WITH CONTRAST [CT] Stat Exams 04/07/22 13:48 Completed ECHO W/2D AND DOPPLER [US] Routine Exams 04/08/22 22:39 Taken HEAD WITHOUT CONTRAST [CT] Stat Exams 04/07/22 12:45 Completed HIP UNI (2V) INCL PEL IF DONE Stat Exams 04/07/22 20:57 Completed LUMBAR SPINE W/O [CT] Stat Exams 04/07/22 12:45 Completed - Procedures and Test Procedures and Tests throughout Hospitalization: Therapy Orders & Screens 04/07/22 20:47 Respiratory Therapy Consult ROUTINE Comment: Reason For Exam: 04/07/22 21:59 Respiratory Therapy Assessment DAILY Comment: 04/08/22 09:32 PT Eval & Treat ( Order) ONCE Reason for Eval:: if pt can safely go home Diagnosis: COVID, FAll and left hip pain Discharge Exam General Appearance: no apparent distress Neurologic Exam: alert, oriented x 3 Respiratory Exam: normal breath sounds, lungs clear, No respiratory distress Cardiovascular Exam: regular rate/rhythm, normal heart sounds Gastrointestinal/Abdomen Exam: soft, No tenderness, No mass Final Diagnosis/Problem List - Final Discharge Diagnosis/Problem (1) COVID-19 Current Visit: Yes Status: Acute Assessment & Plan: home with symptomatic therapy at this time Code(s): U07.1 - COVID-19 (2) Syncope and collapse Current Visit: Yes Status: Acute Assessment & Plan: prelim echo shows EF 67% and no obvious effusion or concerns, formal cardiology read pending Code(s): R55 - SYNCOPE AND COLLAPSE (3) Left hip pain Current Visit: Yes Status: Acute Code(s): M25.552 - PAIN IN LEFT HIP - Discharge Disposition: Home, Self-Care Condition: Stable Prescriptions: Continue Dicyclomine HCl 20 mg [Bentyl 20 mg] 20 mg PO TID Gabapentin 800 mg PO Q6H Omeprazole 20 MG [Prilosec 20 mg] 20 mg PO DAILY Hydrocodone/Acetaminophen [Hydrocodone-Acetamin 10-325 mg] 1 ea PO QID Clopidogrel Bisulfate [PLAVIX Tablet] 75 mg PO DAILY Lisinopril 10 mg [Zestril 10 MG] 10 mg PO HS Diphenhydramine HCl [Benadryl Allergy] 50 mg PO HS Nortriptyline HCl 75 mg PO HS estradioL [Estradiol] 2 mg PO DAILY Baclofen 10 mg [Lioresal 10 mg] 10 mg PO HS Baclofen 5 mg PO BID Metoprolol Succinate 50 mg [Toprol Xl 50 MG] 50 mg PO DAILY Paroxetine HCl 20 mg [Paxil 20 MG] 20 mg PO HS Docusate Sodium [Colace] 200 mg PO QHS Potassium Chloride Tab* [Klor Con] 10 meq PO QAM Follow up with: DEE BEAR [Primary Care Provider] -
[2022-04-08 13:48] VITALS: BP 123/65; PULSE 85; O2SAT 98
[2022-04-08] MEDS ORDERED: Zestril 10 MG PO SCH (22:00)
[2022-04-08] MEDS ORDERED: NORTRIPTYLINE HCL 75 MG PO SCH (22:00)
[2022-04-08] MEDS ORDERED: Paxil 20 MG PO SCH (22:00)
[2022-04-08] MEDS ORDERED: Docusate Sodium 100 MG PO SCH (22:00)
[2022-04-09] MEDS ORDERED: Protonix 40MG Tablet PO SCH (10:00)
== END 2022-04-08 14:16 | disposition home or self-care (01) ==
LOC: ED 12:11 → MED SURG 20:37
PROVIDERS: ADMIT Family Medicine; ATTEND Family Medicine
DX: U07.1 COVID-19 (principal); R55 Syncope and collapse; M25.552 Pain in left hip; I10 Essential (primary) hypertension; W18.30XA Fall on same level, unspecified, initial encounter; M54.50 Low back pain, unspecified; Z79.899 Other long term (current) drug therapy; Z20.828 Contact with and (suspected) exposure to other viral communicable diseases; Z79.01 Long term (current) use of anticoagulants
CPT/HCPCS: 0241U; 36000; 36415; 70450; 71045; 71260; 72131; 73502; 80053; 81015; 83880; 84484; 85025; 85379; 93005; 93041; 93268; 93306; 94760; 94762; 96372; 97161; 99285; G0378; J1650; A9270-GY